=== PATIENT | female | born 1960 | race Asian ===

== ENCOUNTER → 2021-10-07 07:05 | Outpatient (CLI) | payer OTHER, SELFPAY ==
[2021-10-07 12:21] LABS: COVID19 -Nasal RAPID Negative (Negative)
== END ==
PROVIDERS: PCP Family Medicine; Visit Provider Surgery
DX: Z01.812 Encounter for preprocedural laboratory examination (principal); Z20.822 Contact with and (suspected) exposure to COVID-19
CPT/HCPCS: 87635; C9803

== ENCOUNTER → 2021-10-08 06:56 | Outpatient (CLI) | payer OTHER, SELFPAY ==
--- NOTE | 2021-10-08 08:10 | DI.US.S_ITS ---
At the request of: LEANDER TONEY Procedure: US breast LT limited LIMITED ULTRASOUND OF LEFT BREAST: 10/08/2021 CLINICAL: Patient here for u/s guided wire loc. Mass no longer visible and Twirl clip not visible by u/s. Wire loc switched to mammo guided. Comparison is made to exams dated: 04/22/2021 ultrasound biopsy, 04/22/2021 mammogram - [facility] [place], 04/01/2021 ultrasound, and 04/01/2021 mammogram - [facility]. Real-time ultrasound of the left breast 11 o'clock region was performed. Chavez scale images of the real- time examination were reviewed. The previously demonstrated 0.9 cm mass at the 11 o'clock position 2 cm from the nipple was not identified sonographically today. The marker clip placed previously was also not identified. IMPRESSION: POST PROCEDURE MAMMOGRAM FOR MARKER PLACEMENT The previously demonstrated 0.9 cm mass at the 11 o'clock position 2 cm from the nipple was not identified sonographically today. The marker clip placed previously was also not identified. The patient was scheduled for mammographic wire localization to be performed immediately. This exam was interpreted at Station ID: [id number]. Electronically Signed By: Dr. Mic tim,slc/:10/08/2021 11:36:22 copy to: SULEIMAN ANG Continued Report - Page 2 of 2 Patient Name: SHO CURRAN date: 1960 Sex: F Attending Physician: Teresita Indications: Date: 10/08/2021 09:26 At the request of: LEANDER TONEY Procedure: US breast LT limited Ultrasound BI-RADS: Post-procedure biopsy marker clip
--- NOTE | 2021-10-08 08:22 | DI.US.S_ITS ---
At the request of: LEANDER TONEY Procedure: US breast needle loc RT WIRE LOCALIZATION RIGHT BREAST WITH POST MAMMOGRAPHIC AND ULTRASOUND IMAGIN10/08/2021 CLINICAL: Pre-op wire localization with ultrasound guidance. Correlation is made to exams dated: 04/22/2021 ultrasound biopsy and 04/22/2021 mammogram - [facility]. A wire localization was performed for the 0.8 cm x 0.7 cm x 0.4 cm mass located in the right breast at 1 o'clock middle depth 5 cm from the nipple. This was described on the previous mammography and ultrasound reports. The skin was prepped in the usual manner. Local anesthetic was administered to the access site. The localization was approached from the lateral aspect. A wire was inserted into the targeted area. A sterile dressing was applied to the access site. Post placement mammographic and ultrasound imaging was obtained. IMPRESSION: WIRE LOCALIZATION Wire localization for the 0.8 cm x 0.7 cm x 0.4 cm mass in the right breast at 1 o'clock middle depth 5 cm from the nipple was successful. This exam was interpreted at Station ID: [id number]. Dr. Mic tim,slc/:10/08/2021 11:21:57 copy to: SULEIMAN ANG
== END ==
PROVIDERS: PCP Family Medicine; Referring Provider Surgery; Visit Provider Surgery
DX: D24.1 Benign neoplasm of right breast (principal); D24.2 Benign neoplasm of left breast
CPT/HCPCS: 19285; 76642; C1819

== ENCOUNTER 2021-10-08 07:17 | Day surgery (SDC) | payer OTHER, SELFPAY ==
[2021-10-06 08:42] VITALS: BMI 28.3
[2021-10-08] VITALS (8 sets, daily range): BP systolic 98–184; BP diastolic 63–91; PULSE 60–70; RESP 14–18; TEMP 36.3–36.8; O2SAT 18–96; BMI 28.3
--- NOTE | 2021-10-08 | DI.MG.S_ITS ---
UNILATERAL RIGHT DIGITAL DIAGNOSTIC MAMMOGRAM 3D/2D POST-NEEDLE BIOPSY: 10/08/2021 CLINICAL: Right breast post wire. Comparison is made to exams dated: 10/08/2021 [facility], 04/22/2021 ultrasound biopsy - [facility], and 04/01/2021 ultrasound - [facility]. There are scattered fibroglandular elements in right breast. No significant masses, calcifications, or other findings are seen in the breast. There has been no significant interval change. IMPRESSION: NEGATIVE There is no mammographic evidence of malignancy. A 1 year screening mammogram is recommended. Based on the Tyrer Cuzick model (a risk assessment model) the patient's lifetime risk is 10.2% and her 10 year risk is 4.0%. According to the ACR, ACS, and NCCN guidelines, an annual breast MRI exam along with mammogram is recommended if the patient's lifetime risk is 20% or greater. This exam was interpreted at Station ID: [id number]. NOTE: For mammograms, a report in lay terms will be sent to the patient. Approximately 15% of breast malignancies will not be visualized mammographically. In the management of a palpable breast mass, a negative mammogram must not discourage biopsy of a clinically suspicious lesion. Electronically Signed By: Bao levin/aleida:10/08/2021 10:01:20 copy to: SULEIMAN ANG letter sent: Normal Exam ACR BI-RADS Category 1: Negative [id number]
--- NOTE | 2021-10-08 | PATH_ITS ---
[facility] Accession Number: [id number] . 01 Material submitted: . PART A: breast - RIGHT BREAST TISSUE MASS PART B: breast - LEFT BREAST TISSUE MASSES . 01 Clinical history: . BILATERAL BREAST LUMPECTOMY A: SHORT STITCH SUPERIOR, LONG STITCH LATERAL B: SHORT STITCH SUPERIOR, LONG STITCH LATERAL . 01 Diagnosis: A. Right Breast Tissue Mass, Needle Localization Biopsy: Sclerosed intraductal papilloma involved by usual ductal hyperplasia. Negative for atypia or malignancy. Background fibroadenomatous and fibrocystic change and papillomatosis. Please see comment. . B. Left Breast Tissue Masses, Needle Localization Biopsy: Portions of breast tissue x 3 with patchy regions of sclerosed intra- ductal papilloma involved by usual ductal hyperplasia. Changes consistent with previous instrumentation (smallest fragment). Background fibrocystic change and papillomatosis (largest fragment). Pleomorphic calcification present (largeset fragment). Negative for atypia or malignancy. Please see comment. [facility] 10/16/2021 1252 Local . 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 . As part of routine quality cloth tester, this case was also reviewed by Drs. Akers and Gisselle, who agree with the interpretation. . Voice message left for Dr. Lo's care team on 10-14-21 at approximately 5:00 p.m. . 01 Electronically signed: . Mildred Valdez MD, Pathologist NPI- [id number] . 01 Gross description: . Received in two parts. . A. Received in formalin in a specimen container, labeled with the patient's name and medical record number, right breast mass, right breast mass tissue, short stitch superior, long stitch lateral, is previously oriented with a short stitch for superior resection margin, and long stitch for lateral resection margin, wood-yellow, fibroadipose tissue fragment that measures 6.3 cm from superior to inferior, 2.5 cm from medial to lateral, 0.8 cm from anterior to posterior. There is a wire within the specimen that enters through the superior aspect of the specimen. The anterior resection margin is inked in blue. The posterior resection margin is inked in black. Superior (area with suture) is inked in green. The short suture is inked in green. The inferior resection margin is inked in red. The lateral resection margin - margin with long suture is inked orange. The medial resection margin is inked yellow. The specimen is serially sectioned to reveal focally fibrotic cut surfaces. There is an irregularly shaped whiter solid area with metallic clip identified that measures 0.5 x 0.4 x 0.4 cm. The area grossly focally abuts the deep resection margin (posterior resection margin) and it is 0.2 cm away from the anterior resection margin. The area is 0.3 cm away from lateral resection margin and it is 1 cm away from the superior section margin, and 1.7 cm away from the inferior resection margin. The mass is 0.4 cm away from the medial resection margin. Submitted as follows: . A1: Superior resection margin en face. A2: Inferior resection margin en face. A3: Lateral resection margin (margin with long suture) en face shave. A4-A10: Specimen body entirely sequentially submitted (in cassette A7 fibrotic area with metallic clip). . The submitted is submitted on 10/09/2021 at 1:03 p.m. . B. Received in formalin in a specimen container, labeled with the patient's name and medical record number, left breast tissue, short stitch superior, long stitch lateral, are three previously oriented lumpectomies. . Lumpectomy #1 is oriented with a short suture in superior resection margin and long or lateral resection margin. The specimen, the small lumpectomy, measures 3.7 cm from superior to inferior, 2.5 cm from medial to lateral, and 1.1 cm from anterior to deep resection margin. The small lumpectomy is inked yellow on anterior resection margin, black on deep resection margin, blue on medial resection margin. The inferior resection margin is inked red, lateral resection margin is inked green, and superior resection margin is inked orange. . The specimen is serially sectioned to reveal grossly unremarkable fibroadipose cut surfaces. There is a metallic clip identified within one of the cut surfaces. The metallic clip grossly abuts the superficial (yellow) resection margin. The clip is 0.8 cm away from deep resection margin, it is 1.0 cm away from lateral resection margin, 0.5 cm away from medial resection margin, 1.4 cm away from inferior resection margin, and 1.3 cm away from superior resection margin. . The middle-sized lumpectomy is oriented with the short suture on superior resection margin and long lateral resection margin, and measures 3.8 cm from superior to inferior, 3.5 cm from medial to lateral, and 1.1 cm from anterior to posterior (deep resection margin). The specimen has an irregular shape and slightly cauterized surface. The anterior (superficial) resection margin is inked yellow, deep resection margin is inked in black, medial resection inked in blue, inferior resection inked in red, lateral resection margin is inked in green, and superior resection margin is inked orange. . The specimen is serially sectioned to reveal diffusely fibrotic, wood-white and yellow cut surfaces. No distinct lesions are grossly identified. . Lumpectomy #3 is oriented with short suture in superior resection margin and long suture in lateral resection margin, and there is a metallic wire within the specimen anterior aspect. The largest lumpectomy measures 4.7 cm from anterior to posterior, 3.5 cm from superior to inferior, and 0.8 cm from medial to lateral. The specimen has an irregular shape and multilobulated surface. . The specimen is serially sectioned to reveal slightly diffusely fibrotic wood-white and yellow fibroadipose cut surfaces. No distinct lesions are grossly identified. . All three lumpectomies (entire specimen) entirely sequentially submitted as follows: . B1-B4: The smallest lumpectomy (lumpectomy #1) entirely sequentially submitted from superior to inferior (the slice with metallic clip is in cassette B2. B5-B13: Middle-sized lumpectomy entirely sequentially submitted from superior to inferior. B14-B23: The largest third lumpectomy entirely sequentially submitted from superior to inferior. . Part B processed on 10/09/2021 at 2:51 p.m. ([id number]) /MRV 10/09/2021 1609 Local . 01 Microscopic: . An immunohistochemistry panel is performed to further evaluate the cells of interest. The control stains show appropriate reactivity. . RESULTS: Block A7 P63: Positive in regions of interest. SMMS-1: Positive in regions of interest. . The presence of p63 and myosin in the regions of interest mitigates against an interpretation of invasive carcinoma at this focus. . Block A10 P63: Positive in regions of interest. . The presence of p63 in the regions of interest mitigates against an interpretation of invasive carcinoma at this focus. . ER: Patchy positive. CK5/6: Patchy positive. . Blocks B3 and B11 ER: Patchy positive. CK5/6: Patchy positive. . The mosaic pattern of CK5/6 and patchy ER positivity mitigates against an interpretation of atypia within the papillary lesion. . Block B19 E-cadherin: Positive in region of interest. . The presence of e-cadherin positivity mitigates against an interpretation of atypical lobular hyperplasia/lobular carcinoma in situ. . * This test was developed and its performance characteristics determined by [employer]. It has not been cleared or approved by the U.S. Food and Drug Administration. The FDA has determined that such clearance or approval is not necessary. This test is used for clinical purposes. It should not be regarded as investigational or for research. . 01 Pathologist provided ICD-10: D24.1 . 01 CPT . 567321, 282649, V79267, S33437 Specimen Comment: A courtesy copy of this report has been sent to [phone] Performed at: 01 [facility] [address] [place] [address], [place], [place] [id number] MD Harsh Crenshaw MD Phone: [phone]
--- NOTE | 2021-10-08 08:01 | SUR.PREOP ---
pt to DI in wheelchair
--- NOTE | 2021-10-08 09:19 | DI.MG.S_ITS ---
At the request of: LEANDER TONEY Procedure: MM needle loc LT 2D DIGITAL MAMMOGRAPHY GUIDED WIRE LOCALIZATION LEFT BREAST WITH POST MAMMOGRAPHIC IMAGING- POST-EXCISIONAL BIOPSY: 10/08/2021 CLINICAL: Left breast Wire loc bilateral Neoplasm. Correlation is made to exams dated: 04/22/2021 ultrasound biopsy, 04/22/2021 ultrasound biopsy, 04/22/2021 mammogram - [facility] [place], and 04/01/2021 ultrasound - [facility]. A wire localization using digital mammography guidance was performed for the 0.9 cm x 0.8 cm x 0.5 cm mass located in the left breast at 11 o'clock anterior depth 2 cm from the nipple. This was described on the previous mammography and ultrasound reports. The skin was prepped in the usual manner. Local anesthetic was administered to the access site. The localization was approached from the craniocaudal aspect. A wire was inserted adjacent to the marker under digital mammography guidance. A sterile dressing was applied to the access site. Post placement mammographic imaging demonstrates the tip of the wire 1.1cm posterior from the marker. IMPRESSION: WIRE LOCALIZATION Wire localization for the 0.9 cm x 0.8 cm x 0.5 cm mass in the left breast at 11 o'clock anterior depth 2 cm from the nipple was successful. The tip of the wire is 1.1cm posterior from the marker clip. This exam was interpreted at Station ID: [id number]. Continued Report - Page 2 of 2 Patient Name: SHO CURRAN date: 1960 Sex: F Attending Physician: Teresita Indications: Date: 10/08/2021 08:50 At the request of: LEANDER TONEY Procedure: MM needle loc LT 2D Dr. Mic tim,slc/:10/08/2021 11:38:04 copy to: SULEIMAN ANG
--- NOTE | 2021-10-08 10:33 | PM.HP.1 ---
History of Present Illness History of Present Illness Date Patient Seen: 10/08/21 Chief complaint: BILATERAL BREAST LUMPECTOMY Narrative: Tammy Chavez is a 61 year old woman with new diagnosis of bilateral breast sclerosing papiloma here for elective bilateral wire guided lumpectomy. Patient History Medical History Depression Hypertension Surgical History History of hysterectomy Family & Social History Family History Mother Hypertension Stroke Gallstones Brother Hypertension Family/Other Breast cancer Social History: household members spouse lives independently Yes Tobacco & Substance use: Smoking Status Never smoker alcohol intake current alcohol intake frequency holiday/special occasion Substance Use Type does not use Meds Home Medications and Allergies Home Medications Medication Instructions Recorded Confirmed Type losartan 25 mg tablet 25 mg PO DAILY 08/21/21 10/08/21 History metoprolol succinate 50 mg 50 mg PO BID 08/21/21 10/08/21 History tablet,extended release 24 hr sertraline 100 mg tablet 100 mg PO DAILY 08/21/21 10/08/21 History Allergies Allergy/AdvReac Type Severity Reaction Status Date / Time No Known Drug Allergies Allergy Verified 10/08/21 07:58 Exam Vital Signs (past 8 hours): - 10/08/21 07:48 Temperature 97.6 F Pulse Rate 66 Respiratory Rate 18 Blood Pressure 184/91 H Pulse Oximetry 96 Oxygen Delivery Method Room Air Oxygen Delivery Method Room Air Narrative Exam Narrative: General adult woman alert oriented no acute distress Chest nonlabored respiration Assessment & Plan Assessment and plan (1) Papilloma of both breasts: Status: Acute Assessment & Plan narrative: 61-year-old woman with papillomas of both breasts here for bilateral wire guided lumpectomy. Overview of procedure was discussed with the patient. Operative risks including bleeding, infection, need for further surgery, were discussed. Questions answered and she is in agreement with this plan. Time Spent With Patient Critical Care time: I spent a total of [] minutes of critical care time on this patient's care today; this time is exclusive of procedural time.
[2021-10-08] MEDS: LACTATED RINGERS 1,000 ML 100 ML IV (11:35)
[2021-10-08] MEDS: CEFAZOLIN 2 GM/20 ML SYRINGE IV (11:40)
--- NOTE | 2021-10-08 11:59 | SUR.OPER ---
Supine on padded OR bed, head on pillow, arms secured on padded arm boards at <90 degrees abduction, legs uncrossed, safety belt at thigh, tape over blanket over lower legs.
--- NOTE | 2021-10-08 12:11 | DI.MG.S_ITS ---
At the request of: LEANDER TONEY Procedure: MM surgical specimen RT SPECIMEN RIGHT BREAST: 10/08/2021 CLINICAL: Right breast Speciman. Correlation is made to exams dated: 04/22/2021 ultrasound biopsy, 04/22/2021 mammogram - [facility], and 04/01/2021 ultrasound - [facility]. A surgical specimen was imaged for the previous biopsy site located in the right breast at 1 o'clock posterior depth 5 cm from the nipple. IMPRESSION: SPECIMEN The imaged specimen includes a biopsy clip and the distal portion of the localization wire. This exam was interpreted at Station ID: [id number]. Dr. Mic tim,[facility]/:10/08/2021 13:30:30 copy to: SULEIMAN ANG
--- NOTE | 2021-10-08 12:23 | DI.MG.S_ITS ---
At the request of: LEANDER TONEY Procedure: MM surgical specimen LT SPECIMEN LEFT BREAST: 10/08/2021 CLINICAL: Left breast specimen. Correlation is made to exams dated: 04/22/2021 ultrasound biopsy, 04/22/2021 ultrasound biopsy, and 04/22/2021 mammogram - [facility]. A surgical specimen was imaged for the previous biopsy site located in the left breast at 11 o'clock anterior depth 2 cm from the nipple. IMPRESSION: SPECIMEN The imaged specimen includes a biopsy clip and the distal portion of the localization wire. This exam was interpreted at Station ID: [id number]. Dr. Mic tim,[facility]/:10/08/2021 13:30:58 copy to: SULEIMAN ANG
[2021-10-08] MEDS: BUPIVACAINE 0.5% (PF) VIAL 50 ML INJ (12:34)
[2021-10-08] MEDS: EPINEPHrine 1 MG/ML 0.15 MG INJ (12:37)
--- NOTE | 2021-10-08 13:04 | PM.OP.1 ---
Operative Date/Time/Diagnoses Date of procedure: 10/08/21 Time of procedure: 13:04 Pre-op diagnosis: Bilateral breast papillomas Post-op diagnosis: same Procedure & Clinicians Procedure: Bilateral needle guided lumpectomy Same procedure as scheduled: Yes Indications: Biopsy-proven bilateral breast papilloma without evidence of malignancy Surgeon: Ezequiel Lo Anesthesia Type: General Operative Notes Findings: Wire and clip within the right breast specimen. Clip within 1 of the left breast specimens Prosthetic devices, grafts, tissues, transplants, or devices: Right breast mass. Short stitch superior long stitch lateral Left breast mass x3 short stitch superior long stitch lateral Estimated Blood Loss (mL): 10 Procedure in detail: The patient underwent needle localized prior to the operation. They were brought to the operating room and placed supine on the table. Bilateral lower extremity compression devices were applied. They were intubated with an LMA. They were prepped and draped in sterile fashion. Time-out was performed. A curvilinear incision on the superior aspect of the right breast areola was made and subcutaneous tissues were divided. The localizing wire was identified and then brought back within the incision. The end of the wire was within a slightly thickened breast mass approximately 1cm. The mass was excised with the wire and the clip. Specimen was marked short stitch superior long stitch lateral. Imaging demonstrated that the specimen contained the wire and the associated clip. Subcutaneous tissues were reapproximated with 3 0 Vicryl sutures skin closed with Monocryl followed by application of Dermabond. A linear incision was made on the superior aspect of the left breast. The counts were correct. They emerged from anesthesia and were transfered to recovery in stable condition. The localizing wire was identified and then brought back within the incision. There was no clear breast mass associated with the wire. Imaging demonstrated the wire without the clip within the first specimen. With further exploration of the left breast tissue the clip was identified within a anterior slightly thickened breast mass of approximately 2 c. A total of three left breast masses were excised each labeled short stitch superior long stitch lateral. Subcutaneous tissues were reapproximated with 3 0 Vicryl sutures skin closed with Monocryl followed by application of Dermabond. Complications: none Post-operative Condition: stable Disposition: same day surgery
--- NOTE | 2021-10-08 13:30 | SUR.PHASEII ---
Dr. Lo in to talk to pt and she states she understands.
== END 2021-10-08 13:52 | disposition home or self-care (01) ==
PROVIDERS: PCP Family Medicine; Referring Provider Surgery; Visit Provider Surgery
PROC: (CPT 19301; principal; 2021-10-08 11:00)
DX: D24.1 Benign neoplasm of right breast (principal); D24.2 Benign neoplasm of left breast; I10 Essential (primary) hypertension; F32.A Depression, unspecified
CPT/HCPCS: 19301; 19281; 19285; 76098; 76642; 77065; 82962; C1819; J0171; J0690; J2250; J3010

== ENCOUNTER → 2022-06-16 10:08 | Outpatient (CLI) | payer OTHER, SELFPAY ==
--- NOTE | 2022-06-16 10:27 | DI.DEXA.S_ITS ---
Indication: postmenopausal; screening for osteoporosis; Referring Provider: SHADY CAMARILLO Study: Bone densitometry was performed. Exam Date: June 16, 2022 Accession number: [id number] Bone Density: Region BMD T-score Z-score Classification AP Spine(L3, L4) 0.539 -5.1 -3.6 Osteoporosis Femoral Neck (Left) 0.500 -3.1 -1.9 Osteoporosis Total Hip (Left) 0.618 -2.7 -1.7 Osteoporosis Femoral Neck (Right) 0.426 -3.8 -2.5 Osteoporosis Total Hip (Right) 0.600 -2.8 -1.9 Osteoporosis Total Hip Mean 0.609 -2.8 -1.8 Osteoporosis World Health Organization criteria for BMD impression classify patients as: Normal (T-score at or above -1.0), Osteopenia (T-score between -1.0 and -2.5), or Osteoporosis (T-score at or below -2.5). 10-year Fracture Risk: FRAX not reported because: Some T-score for Spine Total or Hip Total or Femoral Neck at or below -2.5 Impression: The patient has osteoporosis, based on the Total Spine T-score. Discussion: HIGH RISK OF FRACTURE. BONE DENSITY IS UNDESIRABLY LOW AT ONE OR MORE SKELETAL SITES, CONSISTENT WITH OSTEOPOROSIS. ALSO, BONE DENSITY IS LOWER THAN EXPECTED FOR AGE AND SEX AT ONE OR MORE SKELETAL SITES; RECOMMEND A DILIGENT SEARCH FOR SECONDARY CAUSES OF BONE LOSS. This patient's lowest T-score meets the World Health Organization's (WHO) criteria for osteoporosis at one or more sites (T-score -2.5 or below). In untreated patients, the risk of osteoporotic fracture increases approximately two-fold for each 1.0 SD decrease in T-score. Low bone density is not the only risk factor for fracture; also consider factors such as patient's age, frailty or poor health, risk of falling, risk of injury, previous osteoporotic fracture, family history of osteoporosis, cigarette smoking, low body weight, etc. Not everyone with low bone mineral density has osteoporosis; osteomalacia and other metabolic bone disorders should also be considered. Patients who have osteoporosis should be evaluated for specific diseases and conditions (secondary causes) that may cause or contribute to bone loss. The [place] Association [employer] Clinical Endocrinologists (AACE) and National Osteoporosis Foundation (NOF) recommend pharmacologic intervention for all postmenopausal women whose T-score is in this range. Also, this patient's bone mineral density is below the range considered normal for healthy age-, sex-, and race-matched controls at least one site (Z-score -2.0 or below). This warrants careful evaluation for diseases and conditions that may contribute to accelerated bone loss. The patient should follow a healthful lifestyle (good nutrition with adequate calcium and vitamin D, and appropriate weight-bearing exercise). Follow-Up: Consider a repeat BMD and Vertebral Fracture Assessment (VFA) exam in 2 years or sooner if medically necessary, to reassess this patient's status. Reported by: AMARI FREGOSO MD on 06/16/2022 10:39:00 AM.
== END ==
PROVIDERS: PCP Family Medicine; Referring Provider Family Medicine; Visit Provider Family Medicine
DX: S22.31XS Fracture of one rib, right side, sequela (principal); Z13.820 Encounter for screening for osteoporosis; Z78.0 Asymptomatic menopausal state; M81.0 Age-related osteoporosis without current pathological fracture; Z90.710 Acquired absence of both cervix and uterus
CPT/HCPCS: 77080

== ENCOUNTER → 2023-01-21 12:53 | Outpatient (CLI) | payer OTHER, SELFPAY ==
--- NOTE | 2023-01-21 12:59 | DI.RAD.S_ITS ---
PROCEDURE: XR LUMBAR SPINE 2-3V INDICATIONS: BACK PAIN TECHNIQUE: 3 views of the lumbar spine were acquired. COMPARISON: None. FINDINGS: Bones: 5 [id number] vertebrae are present. There is normal bony alignment. No vertebral body compression fractures. No suspicious bony lesions. Multilevel disc space narrowing and endplate osteophyte formation, as well as facet hypertrophy. Soft tissues: Overlying bowel gas pattern is normal. No suspicious soft tissue calcifications. IMPRESSION: Multilevel degenerative disc and facet disease. No acute fracture. No osseous lesion. If symptoms and/or clinical suspicion for pathology persist, further assessment with repeat, or advanced imaging (e.g., CT, MRI, or bone scan) may be helpful for further assessment. Dictated by: Arsen Houston M.D. on 01/21/2023 at 15:23 Approved by: Arsen Houston M.D. on 01/21/2023 at 15:23
== END ==
PROVIDERS: PCP Family Medicine; Referring Provider Family Medicine; Visit Provider Family Medicine
DX: M51.16 Intervertebral disc disorders with radiculopathy, lumbar region (principal); M47.26 Other spondylosis with radiculopathy, lumbar region
CPT/HCPCS: 72100

== ENCOUNTER 2023-02-09 05:23 | Emergency (ER) | payer OTHER, SELFPAY ==
[2023-02-09] VITALS (22 sets, daily range): BP systolic 141–239; BP diastolic 72–118; PULSE 59–84; RESP 16–22; TEMP 35.7; O2SAT 20–100; BMI 26.0
--- NOTE | 2023-02-09 05:25 | ED_ITS ---
HPI - General Adult <Shanell Frank MD - Last Filed: 02/10/23 04:22> General Chief complaint: Urogenital-Female Stated complaint: kidney stone and meds isn't working Time Seen by Provider: 02/09/23 05:25 History of Present Illness HPI narrative: 62-year-old woman with a history of hypertension depression who on January 27 presented to would be emergency department complaining of flank pain a CT scan showed a 2 x 1 cm stone in the right ureteropelvic junction with right-sided hydronephrosis and a concurrent solid mass in the left kidney measuring 5 x 4 cm strongly concerning for renal cell cancer. She was given pain medications and informed of the findings has followed up with her primary care doctor and referrals for consultation for the large kidney stone has been obtained it is reportedly at [facility] with Urology on February 15. The patient states that her primary doctor is also working on a 2nd referral for consultation regarding the mass on the right kidney. In the meantime her pain has increased in her primary care doctor his appropriately increased pain medications. At this point she is taking up to 60 mg of oxycodone daily in the form of 10 mg Percocets typically to every 8 hours. She is noticed that she is having more difficulty with constipation. She has used some Senokot in 2 days ago had a very hard stool. She presents today complaining of no stool for 48 hours, increasing lower abdominal pain and a sense that she has a fullness and pressure in her rectum. No fevers or chills. Related Data Home Medications Medication Instructions Recorded Confirmed losartan 25 mg tablet 25 mg PO DAILY 08/21/21 10/16/21 metoprolol succinate 50 mg 50 mg PO BID 08/21/21 10/16/21 tablet,extended release 24 hr sertraline 100 mg tablet 100 mg PO DAILY 08/21/21 10/16/21 Previous Rx's Medication Instructions Recorded acetaminophen 325 mg capsule 650 mg (2 x 325 mg) PO QID PRN 10/08/21 (Tylenol) pain #60 caps ibuprofen 200 mg tablet 400 mg (2 x 200 mg) PO Q6H #60 tabs 10/08/21 oxycodone 5 mg tablet 5 mg PO Q6H PRN pain #20 tabs 10/08/21 ketorolac 10 mg tablet 10 mg PO Q6H PRN pain 5 days #20 11/21/23 tabs oxycodone 5 mg tablet 5 mg PO Q6H PRN pain #10 tabs 02/09/23 Allergies Allergy/AdvReac Type Severity Reaction Status Date / Time No Known Drug Allergies Allergy Verified 02/09/23 05:34 Review of Systems <Shanell Frank MD - Last Filed: 02/10/23 04:22> Review of Systems Narrative: Pertinent positive and negative findings as per HPI Patient History <Shanell Frank MD - Last Filed: 02/10/23 04:22> Medical History Renal mass Kidney stone Depression Hypertension Surgical History History of hysterectomy Family History Mother Hypertension Stroke Gallstones Brother Hypertension Family/Other Breast cancer Social History marital status: household members: spouse lives independently: Yes occupational status: employed Smoking Status: Never smoker alcohol intake: current Smoking Status: Never smoker alcohol intake frequency: holidays/special occasions only Substance Use Type: does not use Exam <Shanell Frank MD - Last Filed: 02/10/23 04:22> Initial Vital Signs Initial Vital Signs: Vital Signs Temperature 96.2 F L 02/09/23 05:32 Pulse Rate 77 02/09/23 05:32 Respiratory Rate 20 02/09/23 05:32 Blood Pressure 239/118 H 02/09/23 05:32 Pulse Oximetry 20 L 02/09/23 05:32 Oxygen Delivery Method Room Air 02/09/23 05:32 General: Healthy appearing, in moderate pain with lower abdominal tenderness. Able to give a complete and coherent history. Well-nourished well-developed HEENT: Moist mucous membranes, normal sclera with reactive pupils, Respiratory: Lungs are clear to auscultation, no wheezing no rales no rhonchi. Full and symmetrical air movement Cardiac: Regular rate and rhythm no murmurs no bruits Abdomen: Soft, tender in the lower quadrants bilaterally without rebound or guarding. Bilateral flank pain right greater than left Rectal exam: No stool in the vault Skin: Warm and dry, no rashes Neurologic: Grossly neurologically intact with no obvious asymmetries or abnormalities Extremities: No trauma, well perfused Psych: Cooperative, appropriate insight and affect <Clara Rich DO - Last Filed: 02/10/23 09:01> Initial Vital Signs Initial Vital Signs: Vital Signs Temperature 96.2 F L 02/09/23 05:32 Pulse Rate 77 02/09/23 05:32 Respiratory Rate 20 02/09/23 05:32 Blood Pressure 239/118 H 02/09/23 05:32 Pulse Oximetry 20 L 02/09/23 05:32 Oxygen Delivery Method Room Air 02/09/23 05:32 Course <Shanell Frank MD - Last Filed: 02/10/23 04:22> Orders Ordered: Discontinued Medications Hydromorphone HCl (Hydromorphone 1 Mg Inj) 1 mg IV NOW ONE Stop: 02/09/23 05:56 Last Admin: 02/09/23 07:09 Dose: Not Given Documented By: MERLIN Hydromorphone HCl (Hydromorphone 0.5 Mg Inj) 0.5 mg IV Q15MIN PRN PRN Reason: Pain, Last Admin: 02/09/23 13:46 Dose: 0.5 mg Documented By: Admin: 02/09/23 07:36 Dose: 0.5 mg Documented By: Admin: 02/09/23 06:39 Dose: 0.5 mg Documented By: Admin: 02/09/23 06:10 Dose: 0.5 mg Documented By: MERLIN Sodium Chloride (Normal Saline 0.9%) 1,000 mls @ 1,000 mls/hr IV BOLUS ONE Stop: 02/09/23 06:54 Last Infusion: 02/09/23 07:08 Dose: Infused Documented By: Admin: 02/09/23 06:10 Dose: 1,000 mls/hr Documented By: SB Lidocaine HCl 5 ml/ Sodium (Chloride) 55 mls @ 330 mls/hr IV NOW ONE Stop: 02/09/23 08:09 Last Infusion: 02/09/23 08:38 Dose: Infused Documented By: Admin: 02/09/23 08:13 Dose: 330 mls/hr Documented By: MPO Ketorolac Tromethamine (Ketorolac 30 Mg/Ml Vial) 15 mg IV NOW ONE Stop: 02/09/23 08:36 Last Admin: 02/09/23 08:41 Dose: 15 mg Documented By: HUE Metoprolol Succinate (Metoprolol Er 50 Mg Tablet) 50 mg PO NOW ONE Stop: 02/09/23 06:00 Last Admin: 02/09/23 06:17 Dose: 50 mg Documented By: MERLIN Ondansetron HCl (Ondansetron 4 Mg/2 Ml Inj) 4 mg IV NOW ONE Stop: 02/09/23 05:56 Last Admin: 02/09/23 06:10 Dose: 4 mg Documented By: MERLIN Vital Signs Vital signs: Vital Signs - 8 hr 02/09/23 06:17 02/09/23 06:17 02/09/23 06:18 Pulse Rate 84 61 61 Respiratory Rate Blood Pressure 184/87 H Pulse Oximetry 95 94 Oxygen Delivery Method 02/09/23 06:18 02/09/23 06:30 02/09/23 06:30 Pulse Rate 63 Respiratory Rate Blood Pressure 184/87 H 199/91 H Pulse Oximetry 96 Oxygen Delivery Method 02/09/23 07:10 02/09/23 07:11 02/09/23 07:11 Pulse Rate 78 76 Respiratory Rate 16 Blood Pressure 214/100 H Pulse Oximetry 98 94 Oxygen Delivery Method Room Air 02/09/23 07:15 02/09/23 07:15 02/09/23 07:19 Pulse Rate 73 71 Respiratory Rate Blood Pressure 196/93 H 196/93 H Pulse Oximetry 95 Oxygen Delivery Method 02/09/23 07:30 02/09/23 07:30 02/09/23 08:00 Pulse Rate 70 70 Respiratory Rate Blood Pressure 209/95 H Pulse Oximetry 95 94 Oxygen Delivery Method 02/09/23 08:01 02/09/23 08:01 02/09/23 08:24 Pulse Rate 70 Respiratory Rate Blood Pressure 239/108 H 221/98 H Pulse Oximetry 94 Oxygen Delivery Method 02/09/23 08:24 02/09/23 08:30 02/09/23 08:30 Pulse Rate 69 67 Respiratory Rate Blood Pressure 205/72 H Pulse Oximetry 93 93 Oxygen Delivery Method 02/09/23 09:00 02/09/23 09:01 02/09/23 09:01 Pulse Rate 67 68 Respiratory Rate Blood Pressure 231/101 H Pulse Oximetry 94 94 Oxygen Delivery Method 02/09/23 09:33 02/09/23 09:33 02/09/23 09:38 Pulse Rate 64 59 L Respiratory Rate 20 Blood Pressure 141/74 H 141/74 H Pulse Oximetry 96 96 Oxygen Delivery Method Room Air 02/09/23 10:52 02/09/23 11:53 02/09/23 12:59 Pulse Rate 60 63 59 L Respiratory Rate 22 22 20 Blood Pressure 191/85 H 191/85 H 205/91 H Pulse Oximetry 97 100 97 Oxygen Delivery Method Room Air Room Air Room Air 02/09/23 13:05 02/09/23 13:59 Pulse Rate 59 L Respiratory Rate 20 Blood Pressure 213/97 H 194/86 H Pulse Oximetry 98 Oxygen Delivery Method Room Air <Clara Rich DO - Last Filed: 02/10/23 09:01> Orders Ordered: Discontinued Medications Hydromorphone HCl (Hydromorphone 1 Mg Inj) 1 mg IV NOW ONE Stop: 02/09/23 05:56 Last Admin: 02/09/23 07:09 Dose: Not Given Documented By: MERLIN Hydromorphone HCl (Hydromorphone 0.5 Mg Inj) 0.5 mg IV Q15MIN PRN PRN Reason: Pain, Last Admin: 02/09/23 13:46 Dose: 0.5 mg Documented By: Admin: 02/09/23 07:36 Dose: 0.5 mg Documented By: Admin: 02/09/23 06:39 Dose: 0.5 mg Documented By: Admin: 02/09/23 06:10 Dose: 0.5 mg Documented By: MERLIN Sodium Chloride (Normal Saline 0.9%) 1,000 mls @ 1,000 mls/hr IV BOLUS ONE Stop: 02/09/23 06:54 Last Infusion: 02/09/23 07:08 Dose: Infused Documented By: Admin: 02/09/23 06:10 Dose: 1,000 mls/hr Documented By: MERLIN Lidocaine HCl 5 ml/ Sodium (Chloride) 55 mls @ 330 mls/hr IV NOW ONE Stop: 02/09/23 08:09 Last Infusion: 02/09/23 08:38 Dose: Infused Documented By: Admin: 02/09/23 08:13 Dose: 330 mls/hr Documented By: KAMILLE Ketorolac Tromethamine (Ketorolac 30 Mg/Ml Vial) 15 mg IV NOW ONE Stop: 02/09/23 08:36 Last Admin: 02/09/23 08:41 Dose: 15 mg Documented By: HUE Metoprolol Succinate (Metoprolol Er 50 Mg Tablet) 50 mg PO NOW ONE Stop: 02/09/23 06:00 Last Admin: 02/09/23 06:17 Dose: 50 mg Documented By: MERLIN Ondansetron HCl (Ondansetron 4 Mg/2 Ml Inj) 4 mg IV NOW ONE Stop: 02/09/23 05:56 Last Admin: 02/09/23 06:10 Dose: 4 mg Documented By: MERLIN Vital Signs Vital signs: Vital Signs - 8 hr 02/09/23 06:17 02/09/23 06:17 02/09/23 06:18 Pulse Rate 84 61 61 Respiratory Rate Blood Pressure 184/87 H Pulse Oximetry 95 94 Oxygen Delivery Method 02/09/23 06:18 02/09/23 06:30 02/09/23 06:30 Pulse Rate 63 Respiratory Rate Blood Pressure 184/87 H 199/91 H Pulse Oximetry 96 Oxygen Delivery Method 02/09/23 07:10 02/09/23 07:11 02/09/23 07:11 Pulse Rate 78 76 Respiratory Rate 16 Blood Pressure 214/100 H Pulse Oximetry 98 94 Oxygen Delivery Method Room Air 02/09/23 07:15 02/09/23 07:15 02/09/23 07:19 Pulse Rate 73 71 Respiratory Rate Blood Pressure 196/93 H 196/93 H Pulse Oximetry 95 Oxygen Delivery Method 02/09/23 07:30 02/09/23 07:30 02/09/23 08:00 Pulse Rate 70 70 Respiratory Rate Blood Pressure 209/95 H Pulse Oximetry 95 94 Oxygen Delivery Method 02/09/23 08:01 02/09/23 08:01 02/09/23 08:24 Pulse Rate 70 Respiratory Rate Blood Pressure 239/108 H 221/98 H Pulse Oximetry 94 Oxygen Delivery Method 02/09/23 08:24 02/09/23 08:30 02/09/23 08:30 Pulse Rate 69 67 Respiratory Rate Blood Pressure 205/72 H Pulse Oximetry 93 93 Oxygen Delivery Method 02/09/23 09:00 02/09/23 09:01 02/09/23 09:01 Pulse Rate 67 68 Respiratory Rate Blood Pressure 231/101 H Pulse Oximetry 94 94 Oxygen Delivery Method 02/09/23 09:33 02/09/23 09:33 02/09/23 09:38 Pulse Rate 64 59 L Respiratory Rate 20 Blood Pressure 141/74 H 141/74 H Pulse Oximetry 96 96 Oxygen Delivery Method Room Air 02/09/23 10:52 02/09/23 11:53 02/09/23 12:59 Pulse Rate 60 63 59 L Respiratory Rate 22 22 20 Blood Pressure 191/85 H 191/85 H 205/91 H Pulse Oximetry 97 100 97 Oxygen Delivery Method Room Air Room Air Room Air 02/09/23 13:05 02/09/23 13:59 Pulse Rate 59 L Respiratory Rate 20 Blood Pressure 213/97 H 194/86 H Pulse Oximetry 98 Oxygen Delivery Method Room Air Medical Decision Making <Shanell Frank MD - Last Filed: 02/10/23 04:22> Lab Data 02/09/23 06:00 02/09/23 06:00 Labs: Lab Results 02/09/23 02/09/23 Range/Units 06:00 07:02 WBC 10.1 (4.5-11.0) X10^3/uL RBC 4.60 (4.0-5.2) X10^6/uL Hgb 13.0 (12.0-16.0) g/dL Hct 39.4 (36-46) % MCV 85.8 (80-100) fL MCH 28.2 (26-34) PG MCHC 32.9 (30-36) % RDW 14.7 (11.6-14.8) % Plt Count 276 (150-400) X10^3/uL Neut % (Auto) 76.2 H (50-75) % Lymph % (Auto) 14.6 L (25-40) % [place] % (Auto) 6.7 (3-14) % Eos % (Auto) 1.8 L (2-4) % Baso % (Auto) 0.7 (0-2) % Neut # (Auto) 7700 H (1584-8052) /uL Lymph # (Auto) 1500 (0102-4613) /uL [place] # (Auto) 700 (0-900) /uL Eos # (Auto) 200 (0-450) /uL Baso # (Auto) 100 (0-100) /uL Sodium 139 (137-145) mmol/L Potassium 3.6 (3.4-5.1) mmol/L Chloride 104 (98-107) mmol/L Carbon Dioxide 28 (22-32) mmol/L BUN 17 (7-17) mg/dL Creatinine 0.87 (0.52-1.04) mg/dL Estimated GFR > 60 (>60) mL/min BUN/Creatinine Ratio 19.5 (6-22) Glucose 115 H (80-110) mg/dL Calcium 9.5 (8.4-10.2) mg/dL Total Bilirubin 0.8 (0.2-1.3) mg/dL AST 31 (14-36) IU/L ALT 28 (<35) IU/L Alkaline Phosphatase 53 (38-126) U/L Total Protein 8.2 (6.3-8.2) g/dL Albumin 4.3 (3.5-5.0) g/dL Globulin 3.9 (1.7-4.1) g/dL Albumin/Globulin Ratio 1.1 (1.0-2.8) Urine Color Yellow Urine Appearance Clear Urine pH 8.0 (4.5-8.0) Ur Specific [place] 1.015 (1.000-1.035) Urine Protein Negative (Negative) Urine Glucose (UA) Negative (Negative) g/dL Urine Ketones Negative (NEGATIVE) Urine Occult Blood Trace-intact (Negative) Urine Nitrate Negative (Negative) Urine Bilirubin Negative (NEGATIVE) Urine Urobilinogen 0.2 (0.2) E.U./dL Ur Leukocyte Esterase Negative (NEGATIVE) Urine RBC 1-5/hpf (0-5/HPF) Urine WBC 1-5/hpf (0-5/HPF) Ur Squamous Epith Cells None seen (0-5/HPF) Urine Bacteria None seen (None) Ur Culture Indicated? Cult not indicated MDM Narrative Medical decision making narrative: CC: Large obstructing stone right ureteropelvic junction and large renal mass in the right kidney both diagnosed 01/27/2023 Complicating co-morbidities: Hypertension Data collected from: patient, Social determinants of health that may influence the patients condition: Some difficulty in accessing care in terms of both referrals and availability of appointments. Next appointment for initial consultation they believe for the kidney stone is currently February 15. They are continuing to work on an appointment for the consultation for the renal mass Medical records reviewed: CT scan and ER discharge notes reviewed from [facility] from January 27 Differential considered: Constipation secondary to large doses of narcotic, bowel obstruction, ureteral obstruction Exam documented above, pertinent findings include: Significant lower abdominal pain without rebound or guarding, mild flank pain right greater than left. She has no stool in the rectal vault, this is not obstipation causing her pain. Lab Test results independently reviewed as above. Pertinent findings: CBC is unremarkable Chemistries are reassuring with normal creatinine at 0.87 Imaging studies independently reviewed: Consultations: Treatments: Re-evaluations: Discussion: <Clara Rich, - Last Filed: 02/10/23 09:01> Lab Data Labs: Lab Results 02/09/23 02/09/23 Range/Units 06:00 07:02 WBC 10.1 (4.5-11.0) X10^3/uL RBC 4.60 (4.0-5.2) X10^6/uL Hgb 13.0 (12.0-16.0) g/dL Hct 39.4 (36-46) % MCV 85.8 (80-100) fL MCH 28.2 (26-34) PG MCHC 32.9 (30-36) % RDW 14.7 (11.6-14.8) % Plt Count 276 (150-400) X10^3/uL Neut % (Auto) 76.2 H (50-75) % Lymph % (Auto) 14.6 L (25-40) % [place] % (Auto) 6.7 (3-14) % Eos % (Auto) 1.8 L (2-4) % Baso % (Auto) 0.7 (0-2) % Neut # (Auto) 7700 H (5605-4168) /uL Lymph # (Auto) 1500 (5156-9284) /uL [place] # (Auto) 700 (0-900) /uL Eos # (Auto) 200 (0-450) /uL Baso # (Auto) 100 (0-100) /uL Sodium 139 (137-145) mmol/L Potassium 3.6 (3.4-5.1) mmol/L Chloride 104 (98-107) mmol/L Carbon Dioxide 28 (22-32) mmol/L BUN 17 (7-17) mg/dL Creatinine 0.87 (0.52-1.04) mg/dL Estimated GFR > 60 (>60) mL/min BUN/Creatinine Ratio 19.5 (6-22) Glucose 115 H (80-110) mg/dL Calcium 9.5 (8.4-10.2) mg/dL Total Bilirubin 0.8 (0.2-1.3) mg/dL AST 31 (14-36) IU/L ALT 28 (<35) IU/L Alkaline Phosphatase 53 (38-126) U/L Total Protein 8.2 (6.3-8.2) g/dL Albumin 4.3 (3.5-5.0) g/dL Globulin 3.9 (1.7-4.1) g/dL Albumin/Globulin Ratio 1.1 (1.0-2.8) Urine Color Yellow Urine Appearance Clear Urine pH 8.0 (4.5-8.0) Ur Specific [place] 1.015 (1.000-1.035) Urine Protein Negative (Negative) Urine Glucose (UA) Negative (Negative) g/dL Urine Ketones Negative (NEGATIVE) Urine Occult Blood Trace-intact (Negative) Urine Nitrate Negative (Negative) Urine Bilirubin Negative (NEGATIVE) Urine Urobilinogen 0.2 (0.2) E.U./dL Ur Leukocyte Esterase Negative (NEGATIVE) Urine RBC 1-5/hpf (0-5/HPF) Urine WBC 1-5/hpf (0-5/HPF) Ur Squamous Epith Cells None seen (0-5/HPF) Urine Bacteria None seen (None) Ur Culture Indicated? Cult not indicated MDM Narrative Medical decision making narrative: CC: Large obstructing stone right ureteropelvic junction and large renal mass in the right kidney both diagnosed 01/27/2023 Complicating co-morbidities: Hypertension Data collected from: patient, Social determinants of health that may influence the patients condition: Some difficulty in accessing care in terms of both referrals and availability of appointments. Next appointment for initial consultation they believe for the kidney stone is currently February 15. They are continuing to work on an appointment for the consultation for the renal mass Medical records reviewed: CT scan and ER discharge notes reviewed from [facility] from January 27 Differential considered: Constipation secondary to large doses of narcotic, bowel obstruction, ureteral obstruction Exam documented above, pertinent findings include: Significant lower abdominal pain without rebound or guarding, mild flank pain right greater than left. She has no stool in the rectal vault, this is not obstipation causing her pain. Lab Test results independently reviewed as above. Pertinent findings: CBC is unremarkable Chemistries are reassuring with normal creatinine at 0.87 Imaging studies independently reviewed: Consultations: Treatments: Re-evaluations: Discussion: Layla 02/09/23: Patient seen and independently evaluated by myself after being signed out by Dr. Frank. Patient has known right-sided kidney stone greater than a cm in size as well as a known left renal mass. She has been set up to see Urology at [facility] with an appointment on this upcoming Wednesday. Patient also notes she is been constipated, she has not been vomiting but has been nauseated. She is been taking Percocet 2-3 tablets every 4 hours without pain relief. Patient is on losartan metoprolol daily. Denies any other daily prescription medications. Was quite hypertensive gave her a.m. morning this medication today. Labs show no leukocytosis normal platelets and hemoglobin, renal function is not elevated today electrolytes are appropriate, LFTs are appropriate. UA shows no acute infection negative for nitrates leuks, no bacteria, 1-5 RBCs and 1-5 white cells with trace blood. Patient's CT abdomen pelvis shows diffuse hepatic steatosis subcentimeter hepatic lesions likely cysts or hemangiomas gallbladder distended with polyps or colic sizes. There is a mass in the left adrenal gland as well as the right adrenal gland and an enhancing heterogeneous mass in the upper left kidney that is 5.2 x 4.2 cm and a right nonobstructing intrarenal calculi with a severe right hydronephrosis with obstructing proximal calculi that is 1.8 x 1.1 cm no free fluid. Bladder is nondistended with colon and small bowel otherwise unremarkable and no suspicious lytic or sclerotic osseous lesions noted. Discussed findings with patient her pain has been difficult to control here in the department. She is not having active vomiting deny appear to be septic or infected. She does have an appointment this upcoming Wednesday. We will reach out to urology through [facility]/ as patient would likely benefit from lithotripsy versus surgical intervention. On recheck patient had several doses of narcotic pain medication without improvement tried lidocaine IV which was minimally helpful and then Toradol which patient did not find quite helpful. She is not been taking any form of NSAIDs at home. Call out to Urology, there were some technical difficulties getting CT images up awaiting call back still at 1201. Patient continues to feel much more comfortable. Patient's pain medication has been wearing off. She does feel improved still. Reviewed her findings, she would like to return home we still have not had call back from Urology at [facility]. They have involved their medical assistant per diem. I feel she is safe for discharge home she has a appointment on Wednesday. Discussed with patient she feels comfortable with this plan. We discussed that any worsening symptoms or other concerns to return for repeat evaluation as there is potential for injury to her kidney and that she does need ultimately treatment. Did offer to have patient stay and we can call other facilities to talk with Urology. She defers at this time. Discussed return precautions she bent best pain relief with Toradol so will give a prescription for oral Toradol, change or oxycodone with Tylenol as needed so she has more control of her pain management with strict return precautions. Discharge Plan Departure Patient Disposition: Home Clinical Impression: Kidney stone on right side, Hydronephrosis, right, Left kidney mass Activity Restrictions/Additional Instructions: Your imaging today continues to show large 1.8 x 1.1 cm right Follow-up in with urology for recheck if you have not passed your stone in the next 2-3 days. Call for an appointment. It is also noted that you have large mass in the left kidney as well as masses on the left and right adrenal glands on both sides. There is a still a call out to Urology at [facility]. You can take your next dose of ketorolac or Toradol at 3:00 p.m. Take Flomax once daily until gone. You may take Toradol 1 tablet every 6 hours as needed for pain and/or Tylenol up to a 1000 mg every 8 hours as needed for pain. Toradol is related to ibuprofen do not take other NSAIDs such as ibuprofen, Aleve or naproxen with this medication. If this is inadequate for pain control you may take narcotic pain medication as prescribed. This medication can make you sleepy do not drive, perform hazardous activities or make any major decisions while taking it. This medication will make you constipated please take a stool softener once to twice daily until stools are soft and regular. Strain your urine and keep the kidney stone for analysis if you are able to catch it. Prescription sent to [facility] in [place]. Please return for fevers, rapidly worsening flank or abdominal pain, lightheadedness or passing out, new chest pain or shortness of breath, persistent vomiting, inability to urinate, black or bloody stools or other new or concerning symptoms. Prescriptions: New ketorolac 10 mg tablet 10 mg PO Q6H PRN (Reason: pain) 5 Days Qty: 20 0RF oxycodone 5 mg tablet 5 mg PO Q6H PRN (Reason: pain) Qty: 10 0RF No Action metoprolol succinate 50 mg tablet extended release 24 hr 50 mg PO BID sertraline 100 mg tablet 100 mg PO DAILY losartan 25 mg tablet 25 mg PO DAILY ibuprofen 200 mg tablet 400 mg PO Q6H Qty: 60 0RF oxycodone 5 mg tablet 5 mg PO Q6H PRN (Reason: pain) Qty: 20 0RF acetaminophen [Tylenol] 325 mg capsule 650 mg PO QID PRN (Reason: pain) Qty: 60 0RF Referrals: Adriel Sotelo MD [Primary Care Provider] - Stand Alone Forms: Patient Portal/API
--- NOTE | 2023-02-09 05:56 | DI.CT.S_ITS ---
PROCEDURE: CT ABDOMEN PELVIS W CON INDICATIONS: low pelvic pain TECHNIQUE: After the administration of intravenous contrast, axial sections acquired from the lung bases to the pubic symphysis. Coronal and sagittal reformats were performed. For radiation dose reduction, the following was used: automated exposure control, adjustment of mA and/or kV according to patient size. COMPARISON: None. FINDINGS: Image quality: Excellent. Lung bases: Small hiatal hernia. Heart: No significant findings. ABDOMEN: Liver: Low attenuating lesions in the liver, presumably lipomas versus cysts. Gallbladder: Foci adherent to the gallbladder wall measuring up to 1 centimeter. No wall thickening. Biliary ducts: Unremarkable. Pancreas: Unremarkable. Spleen: Unremarkable. Adrenal Glands: Bilateral adrenal masses, 1 centimeter on the right and 2.2 centimeters on the left.. Kidneys and Ureters: 5.2 centimeter mass along the lateral margin of the left kidney. This mass does not reach the perirenal fascia. Renal vein is widely patent. Obstructing 1.2 centimeter stone within the right UVJ (968 Hounsfield unit), resulting in severe hydronephrosis and slightly degree laid nephrogram. Additional right-sided nonobstructing nephrolithiasis, measuring up to 8 millimeters (544 Hounsfield unit). Stomach and Bowel: Colonic diverticulosis without evidence of diverticulitis. Normal appendix. Peritoneum: No abnormal intraperitoneal fluid. No free air. Ventral Wall: No hernias. Abdominal Nodes: No retroperitoneal or mesenteric adenopathy by size criteria. Vessels: Aorta and inferior vena cava are normal in size. PELVIS: Pelvic Organs: Unremarkable. Bladder: Unremarkable. Pelvic Nodes: No enlarged lymph nodes. Miscellaneous: No hernias are seen. Bones: Unremarkable. IMPRESSION: Obstructing 1.2 centimeter stone within the right UVJ, resulting in severe hydronephrosis. Heterogeneous left renal mass measuring 5.2 centimeters, renal cell carcinoma until proven otherwise. Bilateral adrenal nodules, indeterminate for metastatic disease. Dictated by: Cedrick Leiva M.D. on 02/09/2023 at 8:22 Approved by: Cedrick Leiva M.D. on 02/09/2023 at 8:30
[2023-02-09] MEDS: SODIUM CHLORIDE 0.9% 1,000 ML 1000 ML IV (06:10)
[2023-02-09] MEDS: HYDROMORPHONE 0.5 MG INJ IV ×4 (06:10→13:46)
[2023-02-09] MEDS: ONDANSETRON 4 MG/2 ML INJ IV (06:10)
[2023-02-09] MEDS: METOPROLOL ER 50 MG TABLET PO (06:17)
[2023-02-09 06:20] LABS: Add Manual Diff / Slide Review NO; Basophils Absolute Auto 100 /uL (0-100); Basophils Percent Auto 0.7 % (0-2); Eosinophils Absolute Auto 200 /uL (0-450); Eosinophils Percent Auto 1.8 % (2-4); Hematocrit 39.4 % (36-46); Lymphocytes Absolute Auto 1500 /uL (1100-4500); Lymphocytes Percent Auto 14.6 % (25-40); Mean Corpuscular HGB Conc 32.9 % (30-36); Mean Corpuscular Hemoglobin 28.2 PG (26-34); Mean Corpuscular Volume 85.8 fL (80-100); Monocytes Absolute Auto 700 /uL (0-900); Monocytes Percent Auto 6.7 % (3-14); Neutrophils Absolute Auto 7700 /uL (1500-7000); Neutrophils Percent Auto 76.2 % (50-75); Platelet Count 276 X10^3/uL (150-400); Red Cell Distribution Width 14.7 % (11.6-14.8); White Blood Cell Count 10.1 X10^3/uL (4.5-11.0)
[2023-02-09 06:42] LABS: Alanine Aminotransferase 28 IU/L (<35); Albumin 4.3 g/dL (3.5-5.0); Albumin Globulin Ratio 1.1 (1.0-2.8); Alkaline Phosphatase 53 U/L (38-126); Aspartate Aminotransferase 31 IU/L (14-36); BUN Creatinine Ratio 19.5 (6-22); Bilirubin Total 0.8 mg/dL (0.2-1.3); Blood Urea Nitrogen 17 mg/dL (7-17); Calcium 9.5 mg/dL (8.4-10.2); Carbon Dioxide 28 mmol/L (22-32); Chloride 104 mmol/L (98-107); Estimated Glomerular Filt Rate > 60 mL/min (>60); Globulin 3.9 g/dL (1.7-4.1); Glucose 115 mg/dL (80-110); HEMOLYSIS 21 (0-50); Potassium 3.6 mmol/L (3.4-5.1); Sodium 139 mmol/L (137-145); Total Protein 8.2 g/dL (6.3-8.2)
[2023-02-09 07:44] LABS: Appearance Urine UA CLEAR; Bilirubin Urine UA NEGATIVE (NEGATIVE); Color Urine UA YELLOW; Glucose Urine UA NEGATIVE (Negative); Ketones Urine UA NEGATIVE (NEGATIVE); Leukocyte Esterase Urine UA NEGATIVE (NEGATIVE); Nitrite Urine UA NEGATIVE (Negative); Occult Blood Urine UA TRACE-INTACT (Negative); Protein Urine UA NEGATIVE (Negative); Specific Gravity Urine UA 1.015 (1.000-1.035); Urobilinogen Urine UA 0.2 E.U./dL (0.2)
[2023-02-09 07:56] LABS: RBC Urine 1-5/HPF (0-5/HPF)
[2023-02-09 07:57] LABS: Bacteria Urine None Seen; Culture Indicated Urine Cult Not Indicated; Squamous Epithelial Cell Urine None Seen (0-5/HPF); WBC Urine 1-5/HPF (0-5/HPF)
[2023-02-09] MEDS: LIDOCAINE 2% (PF) 5 ML in SODIUM CHLORIDE 0.9% 50 ML 330 ML IV (08:13)
[2023-02-09] MEDS: KETOROLAC 30 MG/ML VIAL 15 MG IV (08:41)
== END 2023-02-09 14:20 | disposition home or self-care (01) ==
PROVIDERS: Emergency Medicine; Emergency Provider Emergency Medicine; PCP Family Medicine
DX: N13.2 Hydronephrosis with renal and ureteral calculous obstruction (principal); N28.89 Other specified disorders of kidney and ureter
CPT/HCPCS: 36415; 74177; 80053; 81001; 85025; 96365; 96375; 99284; J1170; J1885; J2405; Q9967

== ENCOUNTER 2023-03-07 23:58 | Emergency (ER) | payer OTHER, SELFPAY ==
[2023-03-08] VITALS (8 sets, daily range): BP systolic 181–200; BP diastolic 91–98; PULSE 74–79; RESP 16; TEMP 36.6; O2SAT 96–99; BMI 24.7
--- NOTE | 2023-03-08 00:23 | ED_ITS ---
HPI - Extremity Problem General Chief complaint: Extremity Problem,Nontraumatic Stated complaint: legs are cramping and feet feel frozen Time Seen by Provider: 03/08/23 00:15 Source: patient Mode of arrival: Ambulatory History of Present Illness HPI Narrative: 62-year-old woman with a right-sided 6 mm obstructing stone in the right renal pelvis initially diagnosed in January of this year. She now has a nephrostomy tube in place and apparently is scheduled for stone removal on March 25. With same CT scan she had an incidentally found large left renal mass concerning for a tumor. Apparently they are waiting to deal with the kidney stone before biopsying the mass. They have been having significant difficulty in accessing primary care doctors, specialty doctors and arranging any type of semi urgent appointments are scheduling. In the meantime she is complaining of back pain and bilateral peripheral neuropathy symptoms with burning over the bottom of both feet and complaints of the bottom of both feet are numb while her thighs are warm. She comes in tonight because she simply has not been able to sleep and is miserable with the peripheral neuropathy symptoms. She notes that these symptoms have been present for quite a period of time seemed to have worsened recently concurrent with difficulty sleeping. She also notes that she has run out of her metoprolol and has not been able to get that filled and is having s ignificantly elevated blood pressures. She currently has no new acute issues, no fevers no abdominal pain, no headache. Urostomy tube on the right has appropriate output. Related Data Home Medications Medication Instructions Recorded Confirmed losartan 25 mg tablet 25 mg PO DAILY 08/21/21 10/16/21 metoprolol succinate 50 mg 50 mg PO BID 08/21/21 10/16/21 tablet,extended release 24 hr sertraline 100 mg tablet 100 mg PO DAILY 08/21/21 10/16/21 Previous Rx's Medication Instructions Recorded acetaminophen 325 mg capsule 650 mg (2 x 325 mg) PO QID PRN 10/08/21 (Tylenol) pain #60 caps ibuprofen 200 mg tablet 400 mg (2 x 200 mg) PO Q6H #60 tabs 10/08/21 oxycodone 5 mg tablet 5 mg PO Q6H PRN pain #20 tabs 10/08/21 oxycodone 5 mg tablet 5 mg PO Q6H PRN pain #10 tabs 02/09/23 gabapentin 100 mg capsule 100 mg PO BEDTIME #30 caps 03/08/23 metoprolol succinate 50 mg 50 mg PO BID #60 tabs 03/08/23 tablet,extended release 24 hr Allergies Allergy/AdvReac Type Severity Reaction Status Date / Time No Known Drug Allergies Allergy Verified 03/08/23 00:24 Review of Systems Review of Systems Narrative: Pertinent positive and negative findings as per HPI Patient History Medical History Renal mass Kidney stone Depression Hypertension Surgical History History of hysterectomy Family History Mother Hypertension Stroke Gallstones Brother Hypertension Family/Other Breast cancer Social History marital status: household members: spouse lives independently: Yes occupational status: employed Smoking Status: Never smoker alcohol intake: current Smoking Status: Never smoker alcohol intake frequency: holidays/special occasions only Substance Use Type: does not use Exam Initial Vital Signs Initial Vital Signs: Vital Signs Pulse Rate 79 03/08/23 00:11 Blood Pressure 181/92 H 03/08/23 00:11 Pulse Oximetry 96 03/08/23 00:11 General: Fatigued, in obvious discomfort but Able to give a complete and coherent history. HEENT: Moist mucous membranes, normal sclera with reactive pupils, Respiratory: Lungs are clear to auscultation, no wheezing no rales no rhonchi. Full and symmetrical air movement Cardiac: Regular rate and rhythm no murmurs no bruits Abdomen: Soft, nontender, good bowel tones, no flank pain Skin: Warm and dry, no rashes Spine: She has no point tenderness over her distal thoracic or lumbar spine Neurologic: Grossly neurologically intact with no obvious asymmetries or abnormalities. Extremities: No trauma, well perfused. Bounding posterior tibialis bilaterally. No skin breakdown or signs of infection. Psych: Cooperative, appropriate insight and affect Course Orders Ordered: Discontinued Medications Gabapentin (Gabapentin 100 Mg Capsule) 100 mg PO NOW ONE Stop: 03/08/23 00:55 Last Admin: 03/08/23 01:08 Dose: 100 mg Documented By: SIHRA Ketorolac Tromethamine (Ketorolac 30 Mg/Ml Vial) 30 mg IM NOW ONE Stop: 03/08/23 01:30 Metoprolol Succinate (Metoprolol Er 50 Mg Tablet) 50 mg PO NOW ONE Stop: 03/08/23 00:26 Last Admin: 03/08/23 00:38 Dose: 50 mg Documented By: SHIRA Metoprolol Succinate (Metoprolol Er 50 Mg Tablet) 50 mg PO NOW ONE Stop: 03/08/23 00:55 Last Admin: 03/08/23 01:08 Dose: 50 mg Documented By: SHIRA Vital Signs Vital signs: Vital Signs - 8 hr 03/08/23 00:11 03/08/23 00:12 03/08/23 00:25 Temperature 98 F Pulse Rate 79 78 Pulse Rate [Right Dorsalis Pedis] 77 Respiratory Rate 16 Blood Pressure 181/92 H 181/92 H Pulse Oximetry 96 96 Oxygen Delivery Method Room Air 03/08/23 00:30 03/08/23 00:30 03/08/23 00:38 Temperature Pulse Rate 77 76 Pulse Rate [Right Dorsalis Pedis] Respiratory Rate Blood Pressure 183/91 H 183/91 H Pulse Oximetry 97 Oxygen Delivery Method 03/08/23 01:00 03/08/23 01:00 03/08/23 01:08 Temperature Pulse Rate 75 78 Pulse Rate [Right Dorsalis Pedis] Respiratory Rate Blood Pressure 200/98 H 200/98 H Pulse Oximetry 99 Oxygen Delivery Method 03/08/23 01:30 03/08/23 01:30 Temperature Pulse Rate 74 Pulse Rate [Right Dorsalis Pedis] Respiratory Rate Blood Pressure 190/93 H Pulse Oximetry 98 Oxygen Delivery Method MDM - Extremity (Nontraumatic) MDM Narrative Medical decision making narrative: CC: Burning pain in the bottom of her feet Complicating co-morbidities: Recently diagnosed large right obstructing renal stone and large left renal mass concerning for cancer Data collected from: patient, Social determinants of health that may influence the patients condition: Difficulty in accessing primary care, specialty Care in scheduling follow-up for renal abnormalities Medical records reviewed: Recent ER visits are reviewed Differential considered: Chronic peripheral neuropathy uncertain etiology, radicular neuropathy, sleep deprivation, metastatic disease, epidural abscess Exam documented above, pertinent findings include: Exam other than subjective pain is relatively benign. There is no reproducible pain with palpation along her spine or paraspinous processes. Both dorsalis pedis and anterior tibialis pulses are bounding. There was no sign of infection and no significant lower extremity edema. She is no abdominal pain. Urostomy site is appropriate Lab Test results independently reviewed as above. Pertinent findings: We discussed testing for peripheral neuropathy and with shared decision-making decided that this was best left for outpatient follow-up. Imaging studies independently reviewed: She had lumbar spine x-rays January [address] pelvis [address] on February 09 at this hospital both of which are again reviewed with her. There is no evidence of spinal metastatic disease at that time but she did have multilevel degenerative disc disease and facet disease which certainly could explain some of the radicular pain and peripheral neuropathy she currently is experiencing. With the abdominal CT done less than a month ago I do not suspect progression of any metastatic disease and again, with shared decision-making, we opted not to do any additional imaging. Treatments: She is given oral metoprolol her usual evening dose as well as 100 mg of gabapentin Discussion: 62-year-old woman who has run out of her blood pressure medications. The metoprolol succinate 50 mg b.i.d. will be refilled for her. She is having difficulty in accessing her primary care doctor who apparently a semi-retired and works on Wednesdays and only. There is no additional options for primary care follow-up. She is been having difficulty getting into subspecialty care for kidney stones as well as the presumed kidney cancer. She and her are both frustrated and concerned that they are allowing significant time to pass between definitive diagnosis and beginning treatment should this in fact turned out to be a kidney cancer. She is not sleeping well and her chronic peripheral neuropathy does seem to be progressing. We talked about options and things that I was able to do in the emergency department and realistic expectations for pain relief. I have given her a dose of Toradol IM in the emergency department to help with the peripheral neuropathy and low back pain she is currently experiencing. We talked about the use of gabapentin as a neuromodulator medications for peripheral neuropathy type pain and a prescription for 100 mg at bedtime is given. She continues to use Tylenol as needed and finds that narcotics caused severe constipation and she would prefer to avoid that whenever possible. At this time I have no additional suggestions for her and no reason for hospital admission or additional imaging or evaluation at this time. Questions are answered and she is safe for discharge Discharge Plan Departure Patient Disposition: Home Clinical Impression: Low back pain Qualifiers: Chronicity: chronic Back pain laterality: bilateral Sciatica presence: unspecified whether sciatica present Qualified Code(s): M54.50 - Low back pain, unspecified Peripheral neuropathy Qualifiers: Peripheral neuropathy type: polyneuropathy, unspecified Qualified Code(s): G62.9 - Polyneuropathy, unspecified Instructions: DI for Peripheral Neuropathy Activity Restrictions/Additional Instructions: Thank you for coming in today I am sorry that you are continuing to suffer with all of these issues. Regarding your blood pressure, I have given you a prescription for the metoprolol. You do need to follow-up with your primary care doctor to make sure that additional refills are available Regarding the burning sensation to the bottom of both your feet, unfortunately, I suspect that this is due to peripheral neuropathy. I have given you a dose of gabapentin to try in the emergency department. If that seems to make any type of difference you can certainly try using 100 mg of gabapentin at night see if it helps decrease any of that nerve type pain. You can continue to use Tylenol to help with the pain as well. [facility] [place] I wish you well as you continue the process of dealing with your kidney stone and having that kidney mass further evaluated and diagnosed. If you find that you are getting worse or develop any new symptoms, please feel free to return to the emergency department for further evaluation. Prescriptions: New metoprolol succinate 50 mg tablet extended release 24 hr 50 mg PO BID Qty: 60 1RF gabapentin 100 mg capsule 100 mg PO BEDTIME Qty: 30 1RF No Action metoprolol succinate 50 mg tablet extended release 24 hr 50 mg PO BID sertraline 100 mg tablet 100 mg PO DAILY losartan 25 mg tablet 25 mg PO DAILY ibuprofen 200 mg tablet 400 mg PO Q6H Qty: 60 0RF oxycodone 5 mg tablet 5 mg PO Q6H PRN (Reason: pain) Qty: 20 0RF acetaminophen [Tylenol] 325 mg capsule 650 mg PO QID PRN (Reason: pain) Qty: 60 0RF oxycodone 5 mg tablet 5 mg PO Q6H PRN (Reason: pain) Qty: 10 0RF Referrals: Adriel Sotelo MD [Primary Care Provider] - Stand Alone Forms: Patient Portal/API
[2023-03-08] MEDS: METOPROLOL ER 50 MG TABLET PO ×2 (00:38→01:08)
[2023-03-08] MEDS: GABAPENTIN 100 MG CAPSULE PO (01:08)
== END 2023-03-08 01:45 | disposition home or self-care (01) ==
PROVIDERS: Emergency Provider Emergency Medicine; PCP Family Medicine
DX: M54.50 Low back pain, unspecified (principal); G62.9 Polyneuropathy, unspecified
CPT/HCPCS: 99283

== ENCOUNTER → 2023-04-09 13:28 | Outpatient (CLI) | payer OTHER, SELFPAY ==
--- NOTE | 2023-04-09 13:30 | DI.NM.S_ITS ---
PROCEDURE: NM RENAL FUNCTION W LASIX RADIOPHARMACEUTICAL: 10.0 mCi Tc-99m MAG3 IV and 20 mg furosemide IV. INDICATIONS: Calculus of kidney/Ureteral stenosis, right TECHNIQUE: The patient was hydrated orally before the examination was begun. After intravenous administration of Tc-99m MAG3, posterior abdominal radionuclide angiogram and sequential (1 minute each frame) renal images were obtained. A time-activity curve for each kidney was generated and analyzed. To evaluate for obstruction, the patient was given 40 mg furosemide via slow intravenous injection after the start of the examination. Sequential images were obtained for up to an additional 20 minutes. COMPARISON: [facility], CT, CT KIDNEY URETER BLADDER (KUB), 04/09/2023, 14:56. [facility], CT, CT ABDOMEN PELVIS W CON, 02/09/2023, 6:51. FINDINGS: Perfusion: There is decreased vascular flow to the right kidney compared to the left kidney. Morphology: Right kidney is decreased in size compared to the left kidney. No dilated collecting systems are seen. The ureters and bladder fill with tracer, and appear normal. Function: Both kidneys demonstrate normal cortical tracer uptake, with [id number] activity ranging from 3 to 5 minutes. The right kidney contributes 15.1% of total renal function. The left kidney contributes 84.9% of total renal function. Lasix stimulation: After diuretic administration, there is prompt clearance of tracer activity from the renal collecting systems in both kidneys. The half-time of emptying of tracer activity from the right pelvicaliceal system is 12 point minutes. The half-time of emptying from the left pelvicaliceal system is 7 minutes. Normal emptying half-times are less than 10 minutes; borderline ranges are from 10 to 20 minutes. IMPRESSION: 1. Right kidney is decreased in size and function. There is a right ureteral stent. Right kidney does not appear to be obstructed on the current exam. 2. Normal left renal function. 3. Right kidney contributes 15.1% of total renal function; left kidney contributes 84.9% of total renal function. Dictated by: Maryam Jeffery M.D. on 04/09/2023 at 15:42 Approved by: Maryam Jeffery M.D. on 04/09/2023 at 22:26
--- NOTE | 2023-04-09 13:31 | DI.CT.S_ITS ---
PROCEDURE: CT KIDNEY URETER BLADDER (KUB) INDICATIONS: Calculus of kidney/Ureteral stenosis, right TECHNIQUE: Axial sections were acquired from the lung bases to the pubic symphysis. Coronal and sagittal reformats were performed. For radiation dose reduction, the following was used: automated exposure control, adjustment of mA and/or kV according to patient size. COMPARISON: [facility], CT, CT ABDOMEN PELVIS W CON, 02/09/2023, 6:51. FINDINGS: Image quality: Diagnostic. Lower Chest: There is a 3 millimeter right middle lobe nodule (3/2). Linear atelectasis versus scarring within the left lung base. URINARY: Right Kidney: No stones or hydronephrosis. Right renal simple appearing cyst at the inferior pole. Right Ureter: Right ureteral stent in place. No stones are seen along the course of the ureter. Left Kidney: Redemonstration of left renal mass measuring up to 5.2 centimeters. Few nonobstructing left renal calcifications are noted. No hydronephrosis. Left Ureter: No hydroureter. Bladder: Normal wall thickness. No stones. ABDOMEN: Liver: Low-attenuation lesions within the liver, lipomas versus simple cysts, stable compared to prior. Gallbladder: Gallstones are present. Gallbladder is contracted. Biliary ducts: No biliary dilation. Pancreas: No ductal dilation. Spleen: Size is within normal limits. Adrenal Glands: Bilateral adrenal nodules are redemonstrated, greater on the left. Stomach and Bowel: Small hiatal hernia. Normal colonic caliber, without significant wall thickening. Diverticulosis without evidence of acute diverticulitis. Normal appendix. Peritoneum: No abnormal intraperitoneal fluid. No free air. Ventral Wall: No hernia. Abdominal Nodes: No enlarged retroperitoneal or mesenteric lymph nodes. Vessels: Aorta and inferior vena cava are normal in size. Atherosclerotic vascular calcifications. PELVIS: Pelvic Organs: Unremarkable. Pelvic Nodes: Unremarkable. Miscellaneous: No inguinal hernias are seen. Bones: Degenerative changes of the spine. Partially visualized subacute/chronic right rib fracture. IMPRESSION: 1. Right ureteral stent in place. No hydronephrosis or stones are seen on the right. 2. Nonobstructing tiny left renal calcifications. No hydronephrosis. 3. Redemonstration of left renal mass measuring up to 5.2 centimeters, consistent with renal cell carcinoma until proven otherwise. 4. Bilateral indeterminate adrenal nodules, metastatic disease is not excluded. 5. There is a 3 millimeter right middle lobe nodule, nonspecific. Metastatic disease is not excluded and attention on follow-up exams is recommended. 6. Cholelithiasis. Dictated by: Tyler Iverson M.D. on 04/09/2023 at 15:48 Approved by: Tyler Iverson M.D. on 04/09/2023 at 15:55
== END ==
LOC: NUCM 13:29
PROVIDERS: PCP Family Medicine; Referring Provider Urology; Visit Provider Urology
DX: N20.0 Calculus of kidney (principal); N13.5 Crossing vessel and stricture of ureter without hydronephrosis; N28.9 Disorder of kidney and ureter, unspecified; E27.9 Disorder of adrenal gland, unspecified; R91.1 Solitary pulmonary nodule; K80.20 Calculus of gallbladder without cholecystitis without obstruction; Z96.0 Presence of urogenital implants
CPT/HCPCS: 74176; 78708; A9562

== ENCOUNTER 2023-04-17 20:08 | Emergency (ER) | payer OTHER, SELFPAY ==
[2023-04-17] VITALS (12 sets, daily range): BP systolic 168–245; BP diastolic 88–109; PULSE 62–79; RESP 16–18; TEMP 37.2; O2SAT 96–99; BMI 24.3
[2023-04-17] MEDS: HYDROMORPHONE 0.5 MG INJ IV (20:46)
[2023-04-17 21:01] LABS: Add Manual Diff / Slide Review NO; Basophils Absolute Auto 100 /uL (0-100); Basophils Percent Auto 0.8 % (0-2); Eosinophils Absolute Auto 200 /uL (0-450); Eosinophils Percent Auto 2.1 % (2-4); Hematocrit 37.1 % (36-46); Hemoglobin 12.4 g/dL (12.0-16.0); Lymphocytes Absolute Auto 2200 /uL (1100-4500); Lymphocytes Percent Auto 24.4 % (25-40); Mean Corpuscular HGB Conc 33.3 % (30-36); Mean Corpuscular Volume 90.2 fL (80-100); Monocytes Absolute Auto 700 /uL (0-900); Monocytes Percent Auto 8.1 % (3-14); Neutrophils Absolute Auto 5700 /uL (1500-7000); Neutrophils Percent Auto 64.6 % (50-75); Platelet Count 269 X10^3/uL (150-400); Red Blood Cell Count 4.12 X10^6/uL (4.0-5.2); Red Cell Distribution Width 18.7 % (11.6-14.8); White Blood Cell Count 8.8 X10^3/uL (4.5-11.0)
[2023-04-17 21:12] LABS: Alanine Aminotransferase 26 IU/L (<35); Albumin 4.2 g/dL (3.5-5.0); Albumin Globulin Ratio 1.2 (1.0-2.8); Aspartate Aminotransferase 41 IU/L (14-36); BUN Creatinine Ratio 25.4 (6-22); Bilirubin Total 1.3 mg/dL (0.2-1.3); Blood Urea Nitrogen 16 mg/dL (7-17); Carbon Dioxide 25 mmol/L (22-32); Chloride 103 mmol/L (98-107); Estimated Glomerular Filt Rate > 60 mL/min (>60); Globulin 3.4 g/dL (1.7-4.1); Potassium 4.2 mmol/L (3.4-5.1); Sodium 138 mmol/L (137-145); Total Protein 7.6 g/dL (6.3-8.2)
[2023-04-17 21:13] LABS: Alkaline Phosphatase 36 U/L (38-126); Calcium 9.3 mg/dL (8.4-10.2); Glucose 84 mg/dL (80-110); Lipase 90 U/L (23-300)
[2023-04-17 21:20] LABS: HEMOLYSIS 119 (0-50)
[2023-04-17 22:18] LABS: Bacteria Urine Few (2-10); RBC Urine >100/HPF (0-5/HPF); Squamous Epithelial Cell Urine 1-5 /HPF (0-5/HPF); Urine Volume 10mL (spun); WBC Urine 5-10/HPF (0-5/HPF)
[2023-04-17 22:19] LABS: Culture Indicated Urine Cult Not Indicated
--- NOTE | 2023-04-17 22:31 | ED_ITS ---
HPI - Back Pain/Injury General Chief Complaint: Back Pain/Injury Stated Complaint: back and leg px Time Seen by Provider: 04/17/23 20:39 Source: patient History of Present Illness HPI Narrative: Patient is a 62-year-old female with fairly new diagnosis of a left renal mass, with a right ureteral stent presenting today with worsening right sided pain. She reports that over the last 3 days she has had increase in pain. No nausea vomiting or fever. She is followed at by the [facility] Dr. Benites. She actually had a CT scan and a renal scan done on April 09 of this month. It again showed left renal mass measuring 5.2 cm with nonobstructing stones she had simple right cyst appearing with right ureteral stent in place no stone seen along the course of the ureter. Today really complaining of right flank pain right lower abdominal quadrant pain radiating 3 days without fever Related Data Home Medications Medication Instructions Recorded Confirmed losartan 25 mg tablet 25 mg PO DAILY 08/21/21 10/16/21 metoprolol succinate 50 mg 50 mg PO BID 08/21/21 10/16/21 tablet,extended release 24 hr sertraline 100 mg tablet 100 mg PO DAILY 08/21/21 10/16/21 Previous Rx's Medication Instructions Recorded acetaminophen 325 mg capsule 650 mg (2 x 325 mg) PO QID PRN 10/08/21 (Tylenol) pain #60 caps ibuprofen 200 mg tablet 400 mg (2 x 200 mg) PO Q6H #60 tabs 10/08/21 oxycodone 5 mg tablet 5 mg PO Q6H PRN pain #20 tabs 10/08/21 oxycodone 5 mg tablet 5 mg PO Q6H PRN pain #10 tabs 02/09/23 gabapentin 100 mg capsule 100 mg PO BEDTIME #30 caps 03/08/23 metoprolol succinate 50 mg 50 mg PO BID #60 tabs 03/08/23 tablet,extended release 24 hr cephalexin 500 mg capsule 500 mg PO BID 5 days #10 caps 04/18/23 Allergies Allergy/AdvReac Type Severity Reaction Status Date / Time No Known Drug Allergies Allergy Verified 03/08/23 00:24 Patient History Medical History Renal mass Kidney stone Depression Hypertension Surgical History History of hysterectomy Family History Mother Hypertension Stroke Gallstones Brother Hypertension Family/Other Breast cancer Social History marital status: household members: spouse lives independently: Yes occupational status: employed Smoking Status: Never smoker alcohol intake: current Smoking Status: Never smoker alcohol intake frequency: holidays/special occasions only Substance Use Type: does not use Exam Initial Vital Signs Initial Vital Signs: Vital Signs Temperature 98.9 F 04/17/23 20:09 Pulse Rate 79 04/17/23 20:09 Respiratory Rate 18 04/17/23 20:09 Blood Pressure 168/88 H 04/17/23 20:09 Pulse Oximetry 98 04/17/23 20:09 Oxygen Delivery Method Room Air 04/17/23 20:09 GENERAL: Alert pleasant 62-year-old female and in no acute distress. HEENT: Head atraumatic,EOMI, pupils reactive, face symmetric, moist mucous membranes CARDIOVASCULAR: Regular rate and rhythm without murmurs, rubs or gallops. RESPIRATORY: Breath sounds equal bilaterally, no wheezes rales or rhonchi. ABDOMEN: Soft, minimal right lower quadrant pain : Minimal right CVA tenderness EXTREMITIES: Normal range of motion, no clubbing or edema. Neurovascularly intact NEUROLOGICAL: Alert and oriented x4.Normal gait and speech. Cranial nerves II through XII grossly intact. SKIN: Warm, dry, no laceration, no petechiae, no rashes or lesions. Course Orders Ordered: ED Orders 04/17/23 20:42 CBC Auto Diff [Complete Blood Count AUTO DIFF] Stat CMP [Comprehensive Metabolic Panel] Stat Lipase Stat 04/17/23 21:49 Urine Culture Stat Urine Microscopic Stat 04/17/23 22:44 XR abdomen min 2V Stat Discontinued Medications Hydromorphone HCl (Hydromorphone 0.5 Mg Inj) 0.5 mg IV NOW ONE Stop: 04/17/23 20:40 Last Admin: 04/17/23 20:46 Dose: 0.5 mg Documented By: MERLIN Hydromorphone HCl (Hydromorphone 0.5 Mg Inj) 0.5 mg IV NOW ONE Stop: 04/18/23 00:22 Last Admin: 04/18/23 00:29 Dose: 0.5 mg Documented By: CONI Ceftriaxone Sodium 1,000 mg/ (Sodium Chloride) 100 mls @ 200 mls/hr IV NOW ONE Stop: 04/17/23 22:45 Last Infusion: 04/18/23 00:15 Dose: Infused Documented By: Admin: 04/17/23 23:12 Dose: 200 mls/hr Documented By: CONI Ketorolac Tromethamine (Ketorolac 30 Mg/Ml Vial) 15 mg IV NOW ONE Stop: 04/17/23 22:45 Last Admin: 04/17/23 23:11 Dose: 15 mg Documented By: CONI Vital Signs Vital signs: Vital Signs - 8 hr 04/17/23 21:00 04/17/23 21:07 04/17/23 21:47 Pulse Rate 64 63 76 Respiratory Rate 16 Blood Pressure 214/95 H Pulse Oximetry 96 97 99 Oxygen Delivery Method Room Air 04/17/23 21:47 04/17/23 22:00 04/17/23 22:00 Pulse Rate 63 Respiratory Rate Blood Pressure 231/98 H 214/94 H Pulse Oximetry 98 Oxygen Delivery Method 04/17/23 22:30 04/17/23 22:30 04/17/23 23:08 Pulse Rate 64 67 Respiratory Rate 18 Blood Pressure 204/92 H Pulse Oximetry 97 99 Oxygen Delivery Method 04/17/23 23:09 04/17/23 23:09 04/17/23 23:12 Pulse Rate 66 Respiratory Rate Blood Pressure 223/96 H 219/98 H Pulse Oximetry 98 Oxygen Delivery Method 04/17/23 23:12 04/17/23 23:30 04/18/23 00:00 Pulse Rate 65 62 61 Respiratory Rate Blood Pressure Pulse Oximetry 99 97 97 Oxygen Delivery Method 04/18/23 00:30 Pulse Rate 61 Respiratory Rate Blood Pressure 206/96 H Pulse Oximetry 98 Oxygen Delivery Method MDM - Back Pain/Injury Lab Data 04/17/23 20:42 04/17/23 20:42 Labs: Lab Results 04/17/23 04/17/23 Range/Units 20:42 21:49 WBC 8.8 (4.5-11.0) X10^3/uL RBC 4.12 (4.0-5.2) X10^6/uL Hgb 12.4 (12.0-16.0) g/dL Hct 37.1 (36-46) % MCV 90.2 (80-100) fL MCH 30.0 (26-34) PG MCHC 33.3 (30-36) % RDW 18.7 H (11.6-14.8) % Plt Count 269 (150-400) X10^3/uL Neut % (Auto) 64.6 (50-75) % Lymph % (Auto) 24.4 L (25-40) % [place] % (Auto) 8.1 (3-14) % Eos % (Auto) 2.1 (2-4) % Baso % (Auto) 0.8 (0-2) % Neut # (Auto) 5700 (4974-8215) /uL Lymph # (Auto) 2200 (0223-3863) /uL [place] # (Auto) 700 (0-900) /uL Eos # (Auto) 200 (0-450) /uL Baso # (Auto) 100 (0-100) /uL Sodium 138 (137-145) mmol/L Potassium 4.2 (3.4-5.1) mmol/L Chloride 103 (98-107) mmol/L Carbon Dioxide 25 (22-32) mmol/L BUN 16 (7-17) mg/dL Creatinine 0.63 (0.52-1.04) mg/dL Estimated GFR > 60 (>60) mL/min BUN/Creatinine Ratio 25.4 H (6-22) Glucose 84 (80-110) mg/dL Calcium 9.3 (8.4-10.2) mg/dL Total Bilirubin 1.3 (0.2-1.3) mg/dL AST 41 H (14-36) IU/L ALT 26 (<35) IU/L Alkaline Phosphatase 36 L (38-126) U/L Total Protein 7.6 (6.3-8.2) g/dL Albumin 4.2 (3.5-5.0) g/dL Globulin 3.4 (1.7-4.1) g/dL Albumin/Globulin Ratio 1.2 (1.0-2.8) Lipase 90 (23-300) U/L Urine RBC >100/hpf H (0-5/HPF) Urine WBC 5-10/hpf H (0-5/HPF) Ur Squamous Epith Cells 1-5 /hpf (0-5/HPF) Urine Bacteria Few (2-10) H (None) Ur Culture Indicated? Cult not indicated Vol Urine Centrifuged 10ml (spun) Urine Dip Bedside Urine Glucose Negative Bedside Urine Bilirubin - Negative Bedside Urine Ketone + 15 Urine Specific [place] 1.010 Bedside Urine Occult Blood +++ Bedside Urine pH 6.0 Bedside Urine Protein +/- 15 Bedside Urine Urobilinogen +/- 1mg Bedside Urine Nitrite - Negative Bedside Urine Leukocytes + 70 Esterase Imaging Data Abdominal x-ray: Radiologist's Impression: PROCEDURE: XR ABDOMEN MIN 2V INDICATIONS: stent placement TECHNIQUE: 2 views of the abdomen were acquired. COMPARISON: None. FINDINGS: Surgical changes and devices: Double pigtail right ureteral stent again noted.. Bowel: No pneumoperitoneum. The bowel gas pattern is normal. Soft tissues: No masses; visualized solid organ contours appear normal in size. No suspicious abdominal calcifications. Bones: No suspicious bony abnormalities. IMPRESSION: Non-obstructive bowel gas pattern. Normal positioning of right double pigtail ureteral stent. Dictated by: Romain Lopez M.D. on 04/17/2023 at 23:38 MDM Narrative Medical decision making narrative: Patient is a 62-year-old female with newly diagnosed left renal cancer with a right ureteral stent presenting today with right sided flank and abdominal pain. She was given Dilaudid initially to help which it did. An actually Toradol has helped the most. Blood work has been reviewed she has no leukocytosis or PALOMA. X-ray shows stent in place She had a full CT done 8 days in ago which did not show any sort of nephrolithiasis or other abdominal pathology she has a persistent left renal mass Patient reports that she is being followed by Dr. Benites at [facility] and actually has a tele health appointment him in [address] results and next. Urinalysis does show red blood cells WBCs bacteria, culture is pending. Possible minor UTI. She is given 1 dose of Rocephin. No evidence of sepsis or severe infection. At this time pain is controlled she does not have fever or leukocytosis not see need for imaging this time. She is noted to be quite hypertensive in the ED he was have history of hypertension, she has had other visits with similarly elevated blood pressure. No concern for dissection. Discharge Plan Departure Patient Disposition: Home Clinical Impression: UTI (urinary tract infection) Instructions: DI for Urinary Tract Infection (UTI) Activity Restrictions/Additional Instructions: *You have been diagnosed with UTI *What to do: At this time you may have a minor infection. The stent seems to be in place. CT from less than 10 days ago did not show any sign of new kidney stone on the right *Continue to take medications as directed Keflex 500 mg twice a day *Follow up with your primary care provider in 2-3 days or call [phone] *Return to ER if you should have increasing pain nausea vomiting weakness or any new, worsening or concerning symptoms Prescriptions: New cephalexin 500 mg capsule 500 mg PO BID 5 Days Qty: 10 0RF No Action metoprolol succinate 50 mg tablet extended release 24 hr 50 mg PO BID sertraline 100 mg tablet 100 mg PO DAILY losartan 25 mg tablet 25 mg PO DAILY ibuprofen 200 mg tablet 400 mg PO Q6H Qty: 60 0RF oxycodone 5 mg tablet 5 mg PO Q6H PRN (Reason: pain) Qty: 20 0RF acetaminophen [Tylenol] 325 mg capsule 650 mg PO QID PRN (Reason: pain) Qty: 60 0RF oxycodone 5 mg tablet 5 mg PO Q6H PRN (Reason: pain) Qty: 10 0RF metoprolol succinate 50 mg tablet extended release 24 hr 50 mg PO BID Qty: 60 1RF gabapentin 100 mg capsule 100 mg PO BEDTIME Qty: 30 1RF Referrals: Adriel Sotelo MD [Primary Care Provider] - Marlon Benites MD [Non-Staff] - Stand Alone Forms: Patient Portal/API
--- NOTE | 2023-04-17 22:44 | DI.RAD.S_ITS ---
PROCEDURE: XR ABDOMEN MIN 2V INDICATIONS: stent placement TECHNIQUE: 2 views of the abdomen were acquired. COMPARISON: None. FINDINGS: Surgical changes and devices: Double pigtail right ureteral stent again noted.. Bowel: No pneumoperitoneum. The bowel gas pattern is normal. Soft tissues: No masses; visualized solid organ contours appear normal in size. No suspicious abdominal calcifications. Bones: No suspicious bony abnormalities. IMPRESSION: Non-obstructive bowel gas pattern. Normal positioning of right double pigtail ureteral stent. Dictated by: Romain Lopez M.D. on 04/17/2023 at 23:38 Approved by: Romain Lopez M.D. on 04/17/2023 at 23:38
[2023-04-17] MEDS: KETOROLAC 30 MG/ML VIAL 15 MG IV (23:11)
[2023-04-17] MEDS: cefTRIAXone 1,000 MG in SODIUM CHLORIDE 0.9% 100 ML 200 MG IV (23:12)
[2023-04-18] VITALS: PULSE 61; O2SAT 97
[2023-04-18] MEDS: HYDROMORPHONE 0.5 MG INJ IV (00:29)
[2023-04-18 00:30] VITALS: BP 206/96; PULSE 61; O2SAT 98
== END 2023-04-18 00:55 | disposition home or self-care (01) ==
PROVIDERS: Emergency Provider Emergency Medicine; PCP Family Medicine
DX: N39.0 Urinary tract infection, site not specified (principal); C64.2 Malignant neoplasm of left kidney, except renal pelvis; Z96.0 Presence of urogenital implants
CPT/HCPCS: 36415; 74019; 80053; 81003; 81015; 83690; 85025; 87086; 96365; 96375; 96376; 99284; J0696; J1170; J1885

== ENCOUNTER 2023-05-08 14:50 | Emergency (ER) | payer OTHER, SELFPAY ==
[2023-05-08] VITALS (34 sets, daily range): BP systolic 182–225; BP diastolic 76–121; PULSE 63–79; RESP 15–26; TEMP 36.9; O2SAT 93–99; BMI 23.6
--- NOTE | 2023-05-08 15:29 | DI.MRI.S_ITS ---
PROCEDURE: MR THORACIC SPINE WO/W CON INDICATIONS: mass seen on lumbar TECHNIQUE: Noncontrast sagittal T1 spin echo and T2 fast spin echo, sagittal STIR, axial T1 and T2 fast spin echo through the thoracic spine. After the administration of contrast, axial and sagittal T1 spin echo with fat saturation through the thoracic spine. COMPARISON: [facility], MR, MR LUMBAR SPINE WO/W CON, 05/08/2023, 16:36. [facility], CT, CT KIDNEY URETER BLADDER (KUB), 04/09/2023, 14:56. FINDINGS: Image quality: Diagnostic. Alignment and curvature: There is normal bony alignment. Marrow: Marrow is of normal overall signal. No acute vertebral body compression fractures. Spinal cord: There is an ovoid mass seen involving the distal spinal cord, which is seen from the mid T11 level through the L1-L2 level. This mass measures 7 cm craniocaudal, with a greatest axial extent of 2.1 x 1.7 cm. There is marked heterogeneous enhancement seen within this mass. No additional masses can be3 seen more proximally. Apparent prominent veins can be seen posterior to the spinal cord within the mid thoracic spine, as on series 14, image 9. Paraspinous soft tissues: No paravertebral masses or abnormal enhancement. There is partial visualization of the known left renal mass Miscellaneous: Central canal and foramina appear widely patent at all scanned levels. IMPRESSION: Within the distal spinal cord, there is a 7 cm enhancing mass seen. 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 Differential diagnosis would also include other entities, including metastasis. Venous prominence can be seen posterior to the spinal cord within the mid thoracic spine. The known left renal mass is partially seen. The CT appearance is concerning for renal cell carcinoma. Dictated by: Osman Ortega M.D. on 05/08/2023 at 16:46 Approved by: Osman Ortega M.D. on 05/08/2023 at 16:53
--- NOTE | 2023-05-08 15:29 | DI.MRI.S_ITS ---
PROCEDURE: MR LUMBAR SPINE WO/W CON INDICATIONS: mass TECHNIQUE: Noncontrast sagittal T1 spin echo and T2 fast spin echo, sagittal STIR, axial T1 and T2 fast spin echo through the lumbar spine. In cases with scoliosis, additional coronal T2 fast spin echo may be performed. After the administration of contrast, sagittal and axial T1 spin echo with fat saturation through the lumbar spine. COMPARISON: [facility], MR, MR THORACIC SPINE WO/W CON, 05/08/2023, 16:36. [facility], CT, CT KIDNEY URETER BLADDER (KUB), 04/09/2023, 14:56. FINDINGS: Image quality: Excellent. Alignment and curvature: There is normal bony alignment. Marrow: Marrow is of normal overall signal. No acute vertebral body compression fractures. No suspicious marrow enhancement. Spinal cord: There is a mass seen involving the distal spinal cord, measuring 7 cm craniocaudal. This mass demonstrates prominent heterogeneous enhancement. This mass expands the spinal canal. Additional enhancing material can be seen involving distal aspect of the spinal canal, seen at the S1-S2 level, as on series 5, image 9. Paraspinous soft tissues: There is partial visualization of the known left renal mass. T12-L1: The above described mass nearly fills the spinal canal this level. There is severe left-sided neural foraminal narrowing. L1-L2: The mass is partially seen at this level. There is moderate left-sided neural foraminal narrowing at this level. L2-L3: No significant abnormality is seen. L3-L4: The disc height is well-preserved. Loss of disc signal is seen at this level. No significant neural foraminal or central canal narrowing can be seen. L4-L5: The disc height and disk signal are relatively well-preserved. Mild generalized disc bulge is seen. Mild to moderate facet hypertrophy can seen. No significant neural foraminal or central canal narrowing can be seen. L5-S1: The disc height and disk signal are relatively well-preserved. Mild generalized disc bulge is seen. Moderate facet joint hypertrophy is seen. No neural foraminal narrowing or central canal narrowing can be seen. IMPRESSION: There is a 7 cm mass seen involving the conus medullaris. 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 Differential diagnosis includes additional causes, including metastasis, however. There is additional enhancement seen involving the distal spinal canal, which is nonspecific. Additional findings: Known left renal mass, highly suspicious for renal cell carcinoma Dictated by: Osman Ortega M.D. on 05/08/2023 at 16:54 Approved by: Osman Ortega M.D. on 05/08/2023 at 17:00
--- NOTE | 2023-05-08 15:32 | ED.BACK ---
HPI - Back Pain/Injury <Adina Haas DO - Last Filed: 05/09/23 07:07> General Chief Complaint: Back Pain/Injury Stated Complaint: Buttocks and legs Pain Time Seen by Provider: 05/08/23 15:29 Source: patient History of Present Illness HPI Narrative: Patient is a 62-year-old female with history of left renal mass presumed to be renal cell carcinoma, hypertension presents today from MRI. She reports that she has had severe sharp shooting pain from her toes into her buttock so bad unable to walk. She is on gabapentin. MRI was done without contrast there was something abnormal noted about it radiology recommended an MR with contrast. She continues to have pain as difficulty with urination and bowel movements. She is noted to be quite hypertensive which actually is not uncommon for her. She has been in the ED handful of times in his wheeze very hypertensive. Related Data Home Medications Medication Instructions Recorded Confirmed ibandronate 150 mg tablet 150 mg PO QMONTH 05/08/23 05/08/23 losartan 50 mg-hydrochlorothiazide 1 tab PO BID 05/08/23 05/08/23 12.5 mg tablet polyethylene glycol 3350 17 17 g PO BID 05/08/23 05/08/23 gram/dose oral powder zolpidem 6.25 mg tablet,extended 6.25 mg PO ONCE PM PRN insomnia 05/08/23 05/08/23 release,multiphase Previous Rx's Medication Instructions Recorded acetaminophen 325 mg capsule 650 mg (2 x 325 mg) PO QID PRN 10/08/21 (Tylenol) pain #60 caps gabapentin 100 mg capsule 100 mg PO BEDTIME #30 caps 03/08/23 metoprolol succinate 50 mg 50 mg PO BID #60 tabs 03/08/23 tablet,extended release 24 hr Allergies Allergy/AdvReac Type Severity Reaction Status Date / Time No Known Drug Allergies Allergy Verified 05/08/23 20:01 Review of Systems <Clara Larose MD - Last Filed: 05/08/23 23:26> Review of Systems Narrative: Negative except as noted above Patient History <Adina Haas DO - Last Filed: 05/09/23 07:07> Medical History Renal mass Kidney stone Depression Hypertension Surgical History History of hysterectomy Family History Mother Hypertension Stroke Gallstones Brother Hypertension Family/Other Breast cancer Social History marital status: household members: spouse lives independently: Yes occupational status: employed Smoking Status: Never smoker alcohol intake: current Smoking Status: Never smoker alcohol intake frequency: holidays/special occasions only Substance Use Type: does not use Exam <Adina Haas DO - Last Filed: 05/09/23 07:07> Initial Vital Signs Initial Vital Signs: Vital Signs Temperature 98.4 F 05/08/23 15:05 Pulse Rate 77 05/08/23 15:05 Respiratory Rate 18 05/08/23 15:05 Blood Pressure 195/94 H 05/08/23 15:05 Pulse Oximetry 99 05/08/23 15:05 Oxygen Delivery Method Room Air 05/08/23 15:05 GENERAL: Alert 62-year-old female appears in pain HEENT: Head atraumatic,EOMI, pupils reactive, face symmetric, moist mucous membranes CARDIOVASCULAR: Regular rate and rhythm without murmurs, rubs or gallops. RESPIRATORY: Breath sounds equal bilaterally, no wheezes rales or rhonchi. ABDOMEN: Soft, nontender. Normoactive bowel sounds all 4 quadrants. No guarding or rebound. RECTAL: Development Lead present, rectal tone intact, decreased perineal sensation EXTREMITIES: Normal range of motion, no clubbing or edema. Neurovascularly intact NEUROLOGICAL: Alert and oriented x4.Normal gait and speech. Moving extremities sensation intact distal pedal pulses intact SKIN: Warm, dry, no laceration, no petechiae, no rashes or lesions. <Clara Larose MD - Last Filed: 05/08/23 23:26> Initial Vital Signs Initial Vital Signs: Vital Signs Temperature 98.4 F 05/08/23 15:05 Pulse Rate 77 05/08/23 15:05 Respiratory Rate 18 05/08/23 15:05 Blood Pressure 195/94 H 05/08/23 15:05 Pulse Oximetry 99 05/08/23 15:05 Oxygen Delivery Method Room Air 05/08/23 15:05 GENERAL: [Well-appearing, well-nourished] and in [no acute] distress. HEENT: Head atraumatic,EOMI, pupils reactive, face symmetric, [moist] mucous membranes [EARS:] [Tympanic membranes visualized, no erythema or bulging, no hemotympanum] [PHARYNX:] [No erythema, no tonsillar exudate, no cervical lymphadenopathy] CARDIOVASCULAR: Regular rate and rhythm without murmurs, rubs or gallops. RESPIRATORY: Breath sounds equal bilaterally, no wheezes rales or rhonchi. ABDOMEN: Soft, nontender. Normoactive bowel sounds all 4 quadrants. No guarding or rebound. [RECTAL:] Development Lead present, rectal tone intact, decreased perineal sensation : No CVA tenderness EXTREMITIES: Normal range of motion, no clubbing or edema. Neurovascularly intact NEUROLOGICAL: Alert and oriented x4.Normal gait and speech. Cranial nerves II through XII grossly intact. [Good [id number], good [id number], strength equal bilaterally, no dysarthria or aphasia, sensation in tact to soft touch bilaterally, no visual changes, no facial droop] SKIN: Warm, dry, no laceration, no petechiae, no rashes or lesions. Course <Adina Haas, DO - Last Filed: 05/09/23 07:07> Orders Ordered: Discontinued Medications Acetaminophen (Acetaminophen 325 Mg Tablet) 650 mg PO Q6H PRN PRN Reason: Fever/Mild Pain (1-3) Last Admin: 05/08/23 22:21 Dose: 650 mg Documented By: AB Dexamethasone (Dexamethasone 10 Mg/Ml Vial) 10 mg IV NOW ONE Stop: 05/08/23 19:45 Last Admin: 05/08/23 19:55 Dose: 10 mg Documented By: AB Dexamethasone (Dexamethasone 10 Mg/Ml Vial) 6 mg IV Q8H [facility] Last Admin: 05/08/23 22:17 Dose: Not Given Documented By: AB Enoxaparin Sodium (Enoxaparin 40 Mg/0.4 Ml Syringe) 40 mg SUBCUT DAILY [facility] Hydrochlorothiazide (Hydrochlorothiazide 25 Mg Tablet) 12.5 mg PO DAILY TOR Hydromorphone HCl (Hydromorphone 0.5 Mg Inj) 0.5 mg IV NOW ONE Stop: 05/08/23 16:16 Last Admin: 05/08/23 16:44 Dose: 0.5 mg Documented By: RB Hydromorphone HCl (Hydromorphone 1 Mg Inj) 1 mg IV NOW ONE Stop: 05/08/23 19:45 Last Admin: 05/08/23 19:59 Dose: 1 mg Documented By: AB Hydromorphone HCl (Hydromorphone 0.5 Mg Inj) 0.5 mg IV NOW PRN PRN Reason: Pain, Severe (7-10) Last Admin: 05/08/23 22:24 Dose: 0.5 mg Documented By: AB Lorazepam (Lorazepam 2 Mg/Ml Inj) 0.5 mg IV NOW ONE Stop: 05/08/23 16:16 Last Admin: 05/08/23 16:44 Dose: 0.5 mg Documented By: RB Losartan Potassium (Losartan 50 Mg Tablet) 50 mg PO NOW TOR Metoprolol Succinate (Metoprolol Er 50 Mg Tablet) 50 mg PO NOW ONE Stop: 05/08/23 18:24 Last Admin: 05/08/23 18:32 Dose: 50 mg Documented By: RB Metoprolol Succinate (Metoprolol Er 50 Mg Tablet) 50 mg PO BID TOR Morphine Sulfate (Morphine 4 Mg/Ml Inj) 4 mg IV NOW ONE Stop: 05/08/23 18:13 Last Admin: 05/08/23 18:18 Dose: 4 mg Documented By: RB Naloxone HCl (Naloxone 0.4 Mg/Ml Vial) 0.2 mg IV Q2MIN PRN PRN Reason: Opiate Reversal Ondansetron HCl (Ondansetron 4 Mg/2 Ml Inj) 4 mg IV Q8H PRN PRN Reason: Nausea And Vomiting Last Admin: 05/08/23 22:21 Dose: 4 mg Documented By: Polyethylene Glycol (Polyethylene Glycol 3350 17 Gm Powd.Pack) 17 gm PO DAILY TOR Zolpidem Tartrate (Zolpidem 5 Mg Tablet) 5 mg PO BEDTIME PRN PRN Reason: Sleep Vital Signs Vital signs: Vital Signs - 8 hr 05/08/23 15:30 05/08/23 15:35 05/08/23 15:35 Pulse Rate 68 64 Respiratory Rate 20 17 Blood Pressure 202/102 H Pulse Oximetry 98 97 05/08/23 15:44 05/08/23 15:44 05/08/23 16:00 Pulse Rate 63 Respiratory Rate 21 Blood Pressure 211/100 H 223/109 H Pulse Oximetry 98 05/08/23 16:00 05/08/23 16:15 05/08/23 16:15 Pulse Rate 68 65 Respiratory Rate 24 21 Blood Pressure 201/100 H Pulse Oximetry 99 98 05/08/23 16:30 05/08/23 16:30 05/08/23 16:45 Pulse Rate 65 Respiratory Rate 18 Blood Pressure 182/103 H 214/102 H Pulse Oximetry 98 05/08/23 16:45 05/08/23 17:47 05/08/23 17:50 Pulse Rate 66 77 Respiratory Rate 17 Blood Pressure 209/101 H Pulse Oximetry 97 96 05/08/23 17:50 05/08/23 18:00 05/08/23 18:00 Pulse Rate 74 70 Respiratory Rate 21 19 Blood Pressure 202/112 H Pulse Oximetry 98 98 05/08/23 18:15 05/08/23 18:15 05/08/23 18:30 Pulse Rate 69 69 Respiratory Rate 23 20 Blood Pressure 213/121 H Pulse Oximetry 99 97 05/08/23 18:30 05/08/23 18:32 05/08/23 18:52 Pulse Rate 69 70 Respiratory Rate 17 Blood Pressure 215/104 H 215/104 H Pulse Oximetry 97 05/08/23 18:53 05/08/23 18:53 05/08/23 19:02 Pulse Rate 68 78 Respiratory Rate 21 Blood Pressure 219/100 H Pulse Oximetry 98 93 05/08/23 19:03 05/08/23 19:03 05/08/23 19:03 Pulse Rate 74 74 Respiratory Rate 26 H Blood Pressure 201/98 H 201/98 H Pulse Oximetry 98 05/08/23 19:15 05/08/23 19:15 05/08/23 19:30 Pulse Rate 69 Respiratory Rate 22 Blood Pressure 197/76 H 215/104 H Pulse Oximetry 97 05/08/23 19:30 05/08/23 19:45 05/08/23 19:45 Pulse Rate 69 71 Respiratory Rate 19 21 Blood Pressure 211/95 H Pulse Oximetry 95 95 05/08/23 20:00 05/08/23 20:00 05/08/23 20:15 Pulse Rate 74 Respiratory Rate 20 Blood Pressure 204/100 H 188/89 H Pulse Oximetry 97 05/08/23 20:15 05/08/23 20:30 05/08/23 20:30 Pulse Rate 73 74 Respiratory Rate 19 19 Blood Pressure 221/102 H Pulse Oximetry 94 95 05/08/23 20:45 05/08/23 20:45 05/08/23 20:49 Pulse Rate 73 Respiratory Rate 18 Blood Pressure 219/105 H 212/90 H Pulse Oximetry 93 05/08/23 20:49 05/08/23 21:00 05/08/23 21:01 Pulse Rate 71 74 Respiratory Rate 17 19 Blood Pressure 211/98 H Pulse Oximetry 95 94 05/08/23 21:01 05/08/23 21:30 05/08/23 21:30 Pulse Rate 75 75 Respiratory Rate 20 17 Blood Pressure 203/91 H Pulse Oximetry 94 95 05/08/23 22:00 05/08/23 22:00 Pulse Rate 71 Respiratory Rate 17 Blood Pressure 196/91 H Pulse Oximetry 96 <Clara Larose MD - Last Filed: 05/08/23 23:26> Orders Ordered: Discontinued Medications Acetaminophen (Acetaminophen 325 Mg Tablet) 650 mg PO Q6H PRN PRN Reason: Fever/Mild Pain (1-3) Last Admin: 05/08/23 22:21 Dose: 650 mg Documented By: AB Dexamethasone (Dexamethasone 10 Mg/Ml Vial) 10 mg IV NOW ONE Stop: 05/08/23 19:45 Last Admin: 05/08/23 19:55 Dose: 10 mg Documented By: AB Dexamethasone (Dexamethasone 10 Mg/Ml Vial) 6 mg IV Q8H TOR Last Admin: 05/08/23 22:17 Dose: Not Given Documented By: AB Enoxaparin Sodium (Enoxaparin 40 Mg/0.4 Ml Syringe) 40 mg SUBCUT DAILY [facility] Hydrochlorothiazide (Hydrochlorothiazide 25 Mg Tablet) 12.5 mg PO DAILY [facility] Hydromorphone HCl (Hydromorphone 0.5 Mg Inj) 0.5 mg IV NOW ONE Stop: 05/08/23 16:16 Last Admin: 05/08/23 16:44 Dose: 0.5 mg Documented By: RB Hydromorphone HCl (Hydromorphone 1 Mg Inj) 1 mg IV NOW ONE Stop: 05/08/23 19:45 Last Admin: 05/08/23 19:59 Dose: 1 mg Documented By: AB Hydromorphone HCl (Hydromorphone 0.5 Mg Inj) 0.5 mg IV NOW PRN PRN Reason: Pain, Severe (7-10) Last Admin: 05/08/23 22:24 Dose: 0.5 mg Documented By: AB Lorazepam (Lorazepam 2 Mg/Ml Inj) 0.5 mg IV NOW ONE Stop: 05/08/23 16:16 Last Admin: 05/08/23 16:44 Dose: 0.5 mg Documented By: RB Losartan Potassium (Losartan 50 Mg Tablet) 50 mg PO NOW TOR Metoprolol Succinate (Metoprolol Er 50 Mg Tablet) 50 mg PO NOW ONE Stop: 05/08/23 18:24 Last Admin: 05/08/23 18:32 Dose: 50 mg Documented By: RB Metoprolol Succinate (Metoprolol Er 50 Mg Tablet) 50 mg PO BID TOR Morphine Sulfate (Morphine 4 Mg/Ml Inj) 4 mg IV NOW ONE Stop: 05/08/23 18:13 Last Admin: 05/08/23 18:18 Dose: 4 mg Documented By: RB Naloxone HCl (Naloxone 0.4 Mg/Ml Vial) 0.2 mg IV Q2MIN PRN PRN Reason: Opiate Reversal Ondansetron HCl (Ondansetron 4 Mg/2 Ml Inj) 4 mg IV Q8H PRN PRN Reason: Nausea And Vomiting Last Admin: 05/08/23 22:21 Dose: 4 mg Documented By: Polyethylene Glycol (Polyethylene Glycol 3350 17 Gm Powd.Pack) 17 gm PO DAILY TOR Zolpidem Tartrate (Zolpidem 5 Mg Tablet) 5 mg PO BEDTIME PRN PRN Reason: Sleep Vital Signs Vital signs: Vital Signs - 8 hr 05/08/23 15:30 05/08/23 15:35 05/08/23 15:35 Pulse Rate 68 64 Respiratory Rate 20 17 Blood Pressure 202/102 H Pulse Oximetry 98 97 05/08/23 15:44 05/08/23 15:44 05/08/23 16:00 Pulse Rate 63 Respiratory Rate 21 Blood Pressure 211/100 H 223/109 H Pulse Oximetry 98 05/08/23 16:00 05/08/23 16:15 05/08/23 16:15 Pulse Rate 68 65 Respiratory Rate 24 21 Blood Pressure 201/100 H Pulse Oximetry 99 98 05/08/23 16:30 05/08/23 16:30 05/08/23 16:45 Pulse Rate 65 Respiratory Rate 18 Blood Pressure 182/103 H 214/102 H Pulse Oximetry 98 05/08/23 16:45 05/08/23 17:47 05/08/23 17:50 Pulse Rate 66 77 Respiratory Rate 17 Blood Pressure 209/101 H Pulse Oximetry 97 96 05/08/23 17:50 05/08/23 18:00 05/08/23 18:00 Pulse Rate 74 70 Respiratory Rate 21 19 Blood Pressure 202/112 H Pulse Oximetry 98 98 05/08/23 18:15 05/08/23 18:15 05/08/23 18:30 Pulse Rate 69 69 Respiratory Rate 23 20 Blood Pressure 213/121 H Pulse Oximetry 99 97 05/08/23 18:30 05/08/23 18:32 05/08/23 18:52 Pulse Rate 69 70 Respiratory Rate 17 Blood Pressure 215/104 H 215/104 H Pulse Oximetry 97 05/08/23 18:53 05/08/23 18:53 05/08/23 19:02 Pulse Rate 68 78 Respiratory Rate 21 Blood Pressure 219/100 H Pulse Oximetry 98 93 05/08/23 19:03 05/08/23 19:03 05/08/23 19:03 Pulse Rate 74 74 Respiratory Rate 26 H Blood Pressure 201/98 H 201/98 H Pulse Oximetry 98 05/08/23 19:15 05/08/23 19:15 05/08/23 19:30 Pulse Rate 69 Respiratory Rate 22 Blood Pressure 197/76 H 215/104 H Pulse Oximetry 97 05/08/23 19:30 05/08/23 19:45 05/08/23 19:45 Pulse Rate 69 71 Respiratory Rate 19 21 Blood Pressure 211/95 H Pulse Oximetry 95 95 05/08/23 20:00 05/08/23 20:00 05/08/23 20:15 Pulse Rate 74 Respiratory Rate 20 Blood Pressure 204/100 H 188/89 H Pulse Oximetry 97 05/08/23 20:15 05/08/23 20:30 05/08/23 20:30 Pulse Rate 73 74 Respiratory Rate 19 19 Blood Pressure 221/102 H Pulse Oximetry 94 95 05/08/23 20:45 05/08/23 20:45 05/08/23 20:49 Pulse Rate 73 Respiratory Rate 18 Blood Pressure 219/105 H 212/90 H Pulse Oximetry 93 05/08/23 20:49 05/08/23 21:00 05/08/23 21:01 Pulse Rate 71 74 Respiratory Rate 17 19 Blood Pressure 211/98 H Pulse Oximetry 95 94 05/08/23 21:01 05/08/23 21:30 05/08/23 21:30 Pulse Rate 75 75 Respiratory Rate 20 17 Blood Pressure 203/91 H Pulse Oximetry 94 95 05/08/23 22:00 05/08/23 22:00 Pulse Rate 71 Respiratory Rate 17 Blood Pressure 196/91 H Pulse Oximetry 96 MDM - Back Pain/Injury <Adina Haas, DO - Last Filed: 05/09/23 07:07> Lab Data 05/08/23 16:00 05/08/23 16:00 Labs: Lab Results 05/08/23 05/08/23 05/08/23 Range/Units 16:00 16:50 20:50 WBC 8.0 (4.5-11.0) X10^3/uL RBC 4.13 (4.0-5.2) X10^6/uL Hgb 12.6 (12.0-16.0) g/dL Hct 37.8 (36-46) % MCV 91.6 (80-100) fL MCH 30.5 (26-34) PG MCHC 33.2 (30-36) % RDW 18.1 H (11.6-14.8) % Plt Count 361 (150-400) X10^3/uL Neut % (Auto) 59.7 (50-75) % Lymph % (Auto) 27.3 (25-40) % Nolan % (Auto) 10.2 (3-14) % Eos % (Auto) 1.9 L (2-4) % Baso % (Auto) 0.9 (0-2) % Neut # (Auto) 4800 (3574-7496) /uL Lymph # (Auto) 2200 (0638-8921) /uL Nolan # (Auto) 800 (0-900) /uL Eos # (Auto) 200 (0-450) /uL Baso # (Auto) 100 (0-100) /uL PT 11.8 (9.4-12.5) SECONDS INR 1.0 (0.9-1.3) Sodium 141 (137-145) mmol/L Potassium 3.7 (3.4-5.1) mmol/L Chloride 108 H (98-107) mmol/L Carbon Dioxide 26 (22-32) mmol/L BUN 10 (7-17) mg/dL Creatinine 0.61 (0.52-1.04) mg/dL Estimated GFR > 60 (>60) mL/min BUN/Creatinine Ratio 16.4 (6-22) Glucose 106 (80-110) mg/dL Calcium 9.8 (8.4-10.2) mg/dL Total Bilirubin 0.7 (0.2-1.3) mg/dL AST 28 (14-36) IU/L ALT 17 (<35) IU/L Alkaline Phosphatase 56 (38-126) U/L Total Creatine Kinase 63 (30-135) U/L Troponin I 0.013 (0.01-0.034) ng/mL NT-Pro-B Natriuret Pep 188 H (<125) pg/mL Total Protein 7.8 (6.3-8.2) g/dL Albumin 4.3 (3.5-5.0) g/dL Globulin 3.5 (1.7-4.1) g/dL Albumin/Globulin Ratio 1.2 (1.0-2.8) Lipase 166 (23-300) U/L SARS-CoV-2 (PCR) Negative (Negative) Urine Dip Bedside Urine Glucose Negative Bedside Urine Bilirubin - Negative Bedside Urine Ketone - Negative Urine Specific Draper 1.015 Bedside Urine Occult Blood +++ Bedside Urine pH 5.5 Bedside Urine Protein +/- 15 Bedside Urine Urobilinogen - Negative Bedside Urine Nitrite - Negative Bedside Urine Leukocytes +/- 15 Esterase Imaging Data PROCEDURE: MR LUMBAR SPINE WO/W CON INDICATIONS: mass TECHNIQUE: Noncontrast sagittal T1 spin echo and T2 fast spin echo, sagittal STIR, axial: Radiologist's Impression: PROCEDURE: MR LUMBAR SPINE WO/W CON INDICATIONS: mass TECHNIQUE: Noncontrast sagittal T1 spin echo and T2 fast spin echo, sagittal STIR, axial T1 and T2 fast spin echo through the lumbar spine. In cases with scoliosis, additional coronal T2 fast spin echo may be performed. After the administration of contrast, sagittal and axial T1 spin echo with fat saturation through the lumbar spine. COMPARISON: [facility], , MR THORACIC SPINE WO/W CON, 05/08/2023, 16:36. [facility], CT, CT KIDNEY URETER BLADDER (KUB), 04/09/2023, 14:56. FINDINGS: Image quality: Excellent. Alignment and curvature: There is normal bony alignment. Marrow: Marrow is of normal overall signal. No acute vertebral body compression fractures. No suspicious marrow enhancement. Spinal cord: There is a mass seen involving the distal spinal cord, measuring 7 cm craniocaudal. This mass demonstrates prominent heterogeneous enhancement. This mass expands the spinal canal. Additional enhancing material can be seen involving distal aspect of the spinal canal, seen at the S1-S2 level, as on series 5, image 9. Paraspinous soft tissues: There is partial visualization of the known left renal mass. T12-L1: The above described mass nearly fills the spinal canal this level. There is severe left-sided neural foraminal narrowing. L1-L2: The mass is partially seen at this level. There is moderate left-sided neural foraminal narrowing at this level. L2-L3: No significant abnormality is seen. L3-L4: The disc height is well-preserved. Loss of disc signal is seen at this level. No significant neural foraminal or central canal narrowing can be seen. L4-L5: The disc height and disk signal are relatively well-preserved. Mild generalized disc bulge is seen. Mild to moderate facet hypertrophy can seen. No significant neural foraminal or central canal narrowing can be seen. L5-S1: The disc height and disk signal are relatively well-preserved. Mild generalized disc bulge is seen. Moderate facet joint hypertrophy is seen. No neural foraminal narrowing or central canal narrowing can be seen. IMPRESSION: There is a 7 cm mass seen involving the conus medullaris. 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 Differential diagnosis includes additional causes, including metastasis, however. There is additional enhancement seen involving the distal spinal canal, which is nonspecific. Additional findings: Known left renal mass, highly suspicious for renal cell carcinoma Dictated by: Osman Ortega M.D. on 05/08/2023 at 16:54 PROCEDURE: MR THORACIC SPINE WO/W CON INDICATIONS: mass seen on lumbar TECHNIQUE: Noncontrast sagittal T1 spin echo and T2 fast spin echo, sag: Radiologist's Impression: ADDENDUMThis report includes an Addendum and supersedes previous reports for this exam. PROCEDURE: MR THORACIC SPINE WO/W CON INDICATIONS: mass seen on lumbar TECHNIQUE: Noncontrast sagittal T1 spin echo and T2 fast spin echo, sagittal STIR, axial T1 and T2 fast spin echo through the thoracic spine. After the administration of contrast, axial and sagittal T1 spin echo with fat saturation through the thoracic spine. COMPARISON: [facility], MR, MR LUMBAR SPINE WO/W CON, 05/08/2023, 16:36. [facility], CT, CT KIDNEY URETER BLADDER (KUB), 04/09/2023, 14:56. FINDINGS: Image quality: Diagnostic. Alignment and curvature: There is normal bony alignment. Marrow: Marrow is of normal overall signal. No acute vertebral body compression fractures. Spinal cord: There is an ovoid mass seen involving the distal spinal cord, which is seen from the mid T11 level through the L1-L2 level. This mass measures 7 cm craniocaudal, with a greatest axial extent of 2.1 x 1.7 cm. There is marked heterogeneous enhancement seen within this mass. No additional masses can be3 seen more proximally. Apparent prominent veins can be seen posterior to the spinal cord within the mid thoracic spine, as on series 14, image 9. Paraspinous soft tissues: No paravertebral masses or abnormal enhancement. There is partial visualization of the known left renal mass Miscellaneous: The above described mass nearly fills the spinal canal at the T11-T12 and the T12-L1 levels, with severe central canal narrowing. There is significant neural foraminal narrowing seen distally. This mass expands the spinal canal and mildly expands the left T12-L1 neural foramen. This is consistent with a longstanding process. IMPRESSION: Within the distal spinal cord, there is a 7 cm enhancing mass seen. 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 Differential diagnosis would also include other entities, including metastasis. Venous prominence can be seen posterior to the spinal cord within the mid thoracic spine. The known left renal mass is partially seen. The CT appearance is concerning for renal cell carcinoma. Dictated by: Osman Ortega M.D. on 05/08/2023 at 16:46 Approved by: Osman Ortega M.D. on 05/08/2023 at 16:53 ADDENDUM: Report corrected and underlined above. Dictated by: Osman Ortega M.D. on 05/08/2023 at 17:00 Approved by: Osman Ortega M.D. on 05/08/2023 at 17:03 Addendum Dictated By: Osman Ortega MD Addendum Signed By: 05/08/231802 Addendum Cosigned By: DD/ TD/TT: 05/08/23 PROCEDURE: MR THORACIC SPINE WO/W CON INDICATIONS: mass seen on lumbar TECHNIQUE: Noncontrast sagittal T1 spin echo and T2 fast spin echo, sagittal STIR, axial T1 and T2 fast spin echo through the thoracic spine. After the administration of contrast, axial and sagittal T1 spin echo with fat saturation through the thoracic spine. COMPARISON: [facility], MR, MR LUMBAR SPINE WO/W CON, 05/08/2023, 16:36. [facility], CT, CT KIDNEY URETER BLADDER (KUB), 04/09/2023, 14:56. FINDINGS: Image quality: Diagnostic. Alignment and curvature: There is normal bony alignment. Marrow: Marrow is of normal overall signal. No acute vertebral body compression fractures. Spinal cord: There is an ovoid mass seen involving the distal spinal cord, which is seen from the mid T11 level through the L1-L2 level. This mass measures 7 cm craniocaudal, with a greatest axial extent of 2.1 x 1.7 cm. There is marked heterogeneous enhancement seen within this mass. No additional masses can be3 seen more proximally. Apparent prominent veins can be seen posterior to the spinal cord within the mid thoracic spine, as on series 14, image 9. Paraspinous soft tissues: No paravertebral masses or abnormal enhancement. There is partial visualization of the known left renal mass Miscellaneous: Central canal and foramina appear widely patent at all scanned levels. IMPRESSION: Within the distal spinal cord, there is a 7 cm enhancing mass seen. 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 Differential diagnosis would also include other entities, including metastasis. Venous prominence can be seen posterior to the spinal cord within the mid thoracic spine. The known left renal mass is partially seen. The CT appearance is concerning for renal cell carcinoma. Dictated by: Osman Ortega M.D. on 05/08/2023 at 16:46 Approved by: Osman Ortega M.D. on 05/08/2023 at 16:53 CT scan - abdomen/pelvis: Radiologist's Impression: PROCEDURE: CT CHEST ABD PEL W CON INDICATIONS: RENAL MASS/CONUS MEDULLARIS MASS/STAGING TECHNIQUE: After the administration of intravenous contrast, 5 mm thick sections acquired from the lung apices to the symphysis. 5 mm coronal and sagittal reformats were performed, with additional 7 mm MIP reformats through the lungs. For radiation dose reduction, the following was used: automated exposure control, adjustment of mA and/or kV according to patient size. COMPARISON: [facility], CT, CT ABDOMEN PELVIS W CON, 02/09/2023, 6:51. [facility], MR, MR LUMBAR SPINE WO/W CON, 05/08/2023, 16:36. FINDINGS: Image quality: Excellent. CHEST: Lower Neck: No enlarged lymph nodes. Thyroid: The thyroid gland bilaterally is mildly lobulated and thickened and contains scattered internal nodular radiodensities, more likely to represent multinodular mild goiter than primary or metastatic neoplasm. Axillae: No enlarged lymph nodes. Chest Wall: Unremarkable except for what appears to be a healed right posterolateral mid chest rib fracture seen on series 2, image 33. . Lungs and Pleura: No pneumothorax or pleural effusions. No consolidation or suspicious nodules. Heart: Heart size is normal. No pericardial effusion. Thoracic Vessels: The aorta and pulmonary arteries demonstrate normal size. Mediastinum and Dania: No enlarged lymph nodes. Esophagus: No wall thickening. Small hiatal hernia. ABDOMEN: Liver: No definite solid mass. 2 there is a vague low-attenuation within the posterior aspect of the left medial hepatic segment, measuring approximately 1.8 cm in dimension, potentially a metastatic focus. See series 2, image 52, liver-spleen windows. Gallbladder: No radiopaque gallstones but there is multifocal nodular wall thickening potentially a manifestation of metastatic disease. Biliary ducts: No biliary dilation. Pancreas: No ductal dilation. Spleen: Size is within normal limits. Adrenal Glands: No adrenal nodules. Kidneys and Ureters: No hydronephrosis. The right kidney is relatively atrophic, the left kidney is abnormal also with a mass lesion projecting laterally from the mid renal cortex measuring up to 5.5 cm AP and 4.0 cm transverse. A right double pigtail ureteral stent extends from the renal pelvis into the bladder. No solid mass. No complex renal cystic lesion which requires follow up. Stomach and Bowel: Normal colonic caliber, without significant wall thickening. Peritoneum: No abnormal intraperitoneal fluid. No free air. Ventral Wall: No significant ventral hernia. Abdominal Nodes: No retroperitoneal or mesenteric adenopathy by size criteria. Vessels: Aorta and inferior vena cava are normal in size. PELVIS: Pelvic Organs: Prior hysterectomy.. Bladder: No bladder wall thickening, accounting for underdistention. Pelvic Nodes: No enlarged lymph nodes. Miscellaneous: No inguinal hernias are seen. Normal appendix found right lower quadrant. Bones: No aggressive osseous abnormality. IMPRESSION: 1. Presumed mild multinodular goiter. Thyroid ultrasound follow up to establish baseline is recommended electively. 2. A conus medullaris mass clearly visible on MR scanning earlier today is not detectable by current CT scanning. 3. Multiple nodular masses are seen involving the inter surface of the gallbladder, potentially a manifestation of metastatic disease. 4. Large solid exophytic left mid kidney mass, having moderately enlarged from a comparison CT 02/09/23. 5. Resolution of previously identified right-sided hydronephrosis by placement of a double pigtail right ureteral stent. Chronic right renal cortical atrophy. 6. Questionable hypodensity within the left medial hepatic segment seen on series 2, image 52 which is a worrisome finding for potential early metastatic disease. Follow-up with MR or PET-CT scanning likely is warranted. Dictated by: Romain Lopez M.D. on 05/08/2023 at 23:04 [facility] Narrative Medical decision making narrative: Patient is 62-year-old female who has known left renal mass presents today from outpatient MRI with abnormal lumbar spine. She has had continuing ongoing numbness tingling and sharp shooting pain from her toes to her buttocks. Blood work has been reviewed no significant leukocytosis or anemia no electrolyte abnormality or PALOMA no evidence of end-organ damage troponin is negative MRIs pending Patient signed out to Dr. Larose Care of patient is signed out to myself by Dr. 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 Patient reassessed, continuing to endorse significant pain, requesting additional pain medications. She has sensation in her lower extremities, however decreased sensation in the perineal area. Rectal tone intact. Images pushed to [place] [facility] for review. <Clara Larose MD - Last Filed: 05/08/23 23:26> Differential Diagnosis Differential diagnosis: Likely lumbar radiculopathy, sciatica and strain of lumbar region Lab Data Labs: Lab Results 05/08/23 05/08/23 05/08/23 Range/Units 16:00 16:50 20:50 WBC 8.0 (4.5-11.0) X10^3/uL RBC 4.13 (4.0-5.2) X10^6/uL Hgb 12.6 (12.0-16.0) g/dL Hct 37.8 (36-46) % MCV 91.6 (80-100) fL MCH 30.5 (26-34) PG MCHC 33.2 (30-36) % RDW 18.1 H (11.6-14.8) % Plt Count 361 (150-400) X10^3/uL Neut % (Auto) 59.7 (50-75) % Lymph % (Auto) 27.3 (25-40) % Nolan % (Auto) 10.2 (3-14) % Eos % (Auto) 1.9 L (2-4) % Baso % (Auto) 0.9 (0-2) % Neut # (Auto) 4800 (1032-6942) /uL Lymph # (Auto) 2200 (0278-3240) /uL Nolan # (Auto) 800 (0-900) /uL Eos # (Auto) 200 (0-450) /uL Baso # (Auto) 100 (0-100) /uL PT 11.8 (9.4-12.5) SECONDS INR 1.0 (0.9-1.3) Sodium 141 (137-145) mmol/L Potassium 3.7 (3.4-5.1) mmol/L Chloride 108 H (98-107) mmol/L Carbon Dioxide 26 (22-32) mmol/L BUN 10 (7-17) mg/dL Creatinine 0.61 (0.52-1.04) mg/dL Estimated GFR > 60 (>60) mL/min BUN/Creatinine Ratio 16.4 (6-22) Glucose 106 (80-110) mg/dL Calcium 9.8 (8.4-10.2) mg/dL Total Bilirubin 0.7 (0.2-1.3) mg/dL AST 28 (14-36) IU/L ALT 17 (<35) IU/L Alkaline Phosphatase 56 (38-126) U/L Total Creatine Kinase 63 (30-135) U/L Troponin I 0.013 (0.01-0.034) ng/mL NT-Pro-B Natriuret Pep 188 H (<125) pg/mL Total Protein 7.8 (6.3-8.2) g/dL Albumin 4.3 (3.5-5.0) g/dL Globulin 3.5 (1.7-4.1) g/dL Albumin/Globulin Ratio 1.2 (1.0-2.8) Lipase 166 (23-300) U/L SARS-CoV-2 (PCR) Negative (Negative) Urine Dip Bedside Urine Glucose Negative Bedside Urine Bilirubin - Negative Bedside Urine Ketone - Negative Urine Specific Draper 1.015 Bedside Urine Occult Blood +++ Bedside Urine pH 5.5 Bedside Urine Protein +/- 15 Bedside Urine Urobilinogen - Negative Bedside Urine Nitrite - Negative Bedside Urine Leukocytes +/- 15 Esterase MDM Narrative Medical decision making narrative: Patient is 62-year-old female who has known left renal mass presents today from outpatient MRI with abnormal lumbar spine. She has had continuing ongoing numbness tingling and sharp shooting pain from her toes to her buttocks. Blood work has been reviewed no significant leukocytosis or anemia no electrolyte abnormality or PALOMA no evidence of end-organ damage troponin is negative MRIs pending Patient signed out to Dr. Larose Care of patient is signed out to myself by Dr. 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 Patient reassessed, continuing to endorse significant pain, requesting additional pain medications. She has sensation in her lower extremities, however decreased sensation in the perineal area. Rectal tone intact. Images pushed to [place] [facility] for review. Dr. Bazan (neurosurgery) - recommended transfer to medicine service - this is a complex mass and any intervention would require multiple specialties. 2029 -accepted by hospitalist Service at [facility], however there are no available beds and I was informed that it would be a long wait for any open beds. We will attempt to call other facilities to place patient. 2149 - Discussed with neurosurgery Dr. Gold, states that patient should be transported to their hospital, but requested they be sent to the ER with eventual MICU admit for close neuro checks. 2199 - Dr. Bray in the ED accepts transfer. 2299 -[facility] picked patient up for transport. Hemodynamically stable at time of transport. Discharge Plan Departure Patient Disposition: [facility] Clinical Impression: Acute back pain Prescriptions: No Action polyethylene glycol 3350 17 gram/dose powder 17 g PO BID losartan-hydrochlorothiazide 50-12.5 mg tablet 1 tab PO BID ibandronate 150 mg tablet 150 mg PO QMONTH zolpidem 6.25 mg tablet,ext release multiphase 6.25 mg PO ONCE PM PRN (Reason: insomnia) acetaminophen [Tylenol] 325 mg capsule 650 mg PO QID PRN (Reason: pain) Qty: 60 0RF metoprolol succinate 50 mg tablet extended release 24 hr 50 mg PO BID Qty: 60 1RF gabapentin 100 mg capsule 100 mg PO BEDTIME Qty: 30 1RF Referrals: Adriel Sotelo MD [Primary Care Provider] -
--- NOTE | 2023-05-08 15:39 | PC.NURSE ---
This RN informed ED provider of patient hypertension and that patient takes PO metoprolol BID and took morning dose. No new orders at this time.
[2023-05-08 16:08] LABS: Add Manual Diff / Slide Review NO; Basophils Absolute Auto 100 /uL (0-100); Basophils Percent Auto 0.9 % (0-2); Eosinophils Absolute Auto 200 /uL (0-450); Eosinophils Percent Auto 1.9 % (2-4); Hematocrit 37.8 % (36-46); Hemoglobin 12.6 g/dL (12.0-16.0); Lymphocytes Absolute Auto 2200 /uL (1100-4500); Lymphocytes Percent Auto 27.3 % (25-40); Mean Corpuscular HGB Conc 33.2 % (30-36); Mean Corpuscular Hemoglobin 30.5 PG (26-34); Mean Corpuscular Volume 91.6 fL (80-100); Monocytes Absolute Auto 800 /uL (0-900); Monocytes Percent Auto 10.2 % (3-14); Neutrophils Absolute Auto 4800 /uL (1500-7000); Neutrophils Percent Auto 59.7 % (50-75); Platelet Count 361 X10^3/uL (150-400); Red Blood Cell Count 4.13 X10^6/uL (4.0-5.2); Red Cell Distribution Width 18.1 % (11.6-14.8)
[2023-05-08 16:20] LABS: Creatine Kinase 63 U/L (30-135)
[2023-05-08 16:22] LABS: Alanine Aminotransferase 17 IU/L (<35); Albumin 4.3 g/dL (3.5-5.0); Albumin Globulin Ratio 1.2 (1.0-2.8); Alkaline Phosphatase 56 U/L (38-126); Aspartate Aminotransferase 28 IU/L (14-36); BUN Creatinine Ratio 16.4 (6-22); Bilirubin Total 0.7 mg/dL (0.2-1.3); Blood Urea Nitrogen 10 mg/dL (7-17); Calcium 9.8 mg/dL (8.4-10.2); Carbon Dioxide 26 mmol/L (22-32); Chloride 108 mmol/L (98-107); Estimated Glomerular Filt Rate > 60 mL/min (>60); Globulin 3.5 g/dL (1.7-4.1); Glucose 106 mg/dL (80-110); HEMOLYSIS 34 (0-50); Lipase 166 U/L (23-300); Potassium 3.7 mmol/L (3.4-5.1); Sodium 141 mmol/L (137-145); Total Protein 7.8 g/dL (6.3-8.2)
[2023-05-08 16:33] LABS: NT-proBNP (BNP-Adult 18+) 188 pg/mL (<125); Troponin I 0.013 ng/mL (0.01-0.034)
[2023-05-08] MEDS: HYDROMORPHONE 0.5 MG INJ IV ×2 (16:44→22:24)
[2023-05-08] MEDS: LORazepam 2 MG/ML INJ 0.5 MG IV (16:44)
--- NOTE | 2023-05-08 16:56 | PC.NURSE ---
Patient left ED with dental laboratory technician. dental laboratory technician informed of patient getting medications that were just given. This RN informed tech to immediately call this RN if any adverse side effects are noted.
[2023-05-08 17:08] LABS: Prothrombin Time 11.8 SECONDS (9.4-12.5)
--- NOTE | 2023-05-08 18:15 | PC.NURSE ---
Patient returns from MRI and reassessed patient pain and provider placed new pain medication for this patient.
[2023-05-08] MEDS: MORPHINE 4 MG/ML INJ IV (18:18)
[2023-05-08] MEDS: METOPROLOL ER 50 MG TABLET PO (18:32)
--- NOTE | 2023-05-08 19:24 | PC.NURSE ---
Assumed pt care at this time. Focused assessment completed. Pt complains of mid back pain at a 8/10 aching/cramping feeling. Would like to have something stronger than what she has been given. Last time she was in ER she said that she had something that worked better. Advised pt that would pass on information to provider on shift now, and follow up with regarding PRN medications and HTN parameters.
[2023-05-08] MEDS: DEXAMETHASONE 10 MG/ML VIAL IV (19:55)
[2023-05-08] MEDS: HYDROMORPHONE 1 MG INJ IV (19:59)
[2023-05-08 21:49] LABS: COVID19 -Nasal RAPID Negative (Negative)
--- NOTE | 2023-05-08 22:01 | DI.CT.S_ITS ---
PROCEDURE: CT CHEST ABD PEL W CON INDICATIONS: RENAL MASS/CONUS MEDULLARIS MASS/STAGING TECHNIQUE: After the administration of intravenous contrast, 5 mm thick sections acquired from the lung apices to the symphysis. 5 mm coronal and sagittal reformats were performed, with additional 7 mm MIP reformats through the lungs. For radiation dose reduction, the following was used: automated exposure control, adjustment of mA and/or kV according to patient size. COMPARISON: [facility], CT, CT ABDOMEN PELVIS W CON, 02/09/2023, 6:51. [facility], MR, MR LUMBAR SPINE WO/W CON, 05/08/2023, 16:36. FINDINGS: Image quality: Excellent. CHEST: Lower Neck: No enlarged lymph nodes. Thyroid: The thyroid gland bilaterally is mildly lobulated and thickened and contains scattered internal nodular radiodensities, more likely to represent multinodular mild goiter than primary or metastatic neoplasm. Axillae: No enlarged lymph nodes. Chest Wall: Unremarkable except for what appears to be a healed right posterolateral mid chest rib fracture seen on series 2, image 33. . Lungs and Pleura: No pneumothorax or pleural effusions. No consolidation or suspicious nodules. Heart: Heart size is normal. No pericardial effusion. Thoracic Vessels: The aorta and pulmonary arteries demonstrate normal size. Mediastinum and Dania: No enlarged lymph nodes. Esophagus: No wall thickening. Small hiatal hernia. ABDOMEN: Liver: No definite solid mass. 2 there is a vague low-attenuation within the posterior aspect of the left medial hepatic segment, measuring approximately 1.8 cm in dimension, potentially a metastatic focus. See series 2, image 52, liver-spleen windows. Gallbladder: No radiopaque gallstones but there is multifocal nodular wall thickening potentially a manifestation of metastatic disease. Biliary ducts: No biliary dilation. Pancreas: No ductal dilation. Spleen: Size is within normal limits. Adrenal Glands: No adrenal nodules. Kidneys and Ureters: No hydronephrosis. The right kidney is relatively atrophic, the left kidney is abnormal also with a mass lesion projecting laterally from the mid renal cortex measuring up to 5.5 cm AP and 4.0 cm transverse. A right double pigtail ureteral stent extends from the renal pelvis into the bladder. No solid mass. No complex renal cystic lesion which requires follow up. Stomach and Bowel: Normal colonic caliber, without significant wall thickening. Peritoneum: No abnormal intraperitoneal fluid. No free air. Ventral Wall: No significant ventral hernia. Abdominal Nodes: No retroperitoneal or mesenteric adenopathy by size criteria. Vessels: Aorta and inferior vena cava are normal in size. PELVIS: Pelvic Organs: Prior hysterectomy.. Bladder: No bladder wall thickening, accounting for underdistention. Pelvic Nodes: No enlarged lymph nodes. Miscellaneous: No inguinal hernias are seen. Normal appendix found right lower quadrant. Bones: No aggressive osseous abnormality. IMPRESSION: 1. Presumed mild multinodular goiter. Thyroid ultrasound follow up to establish baseline is recommended electively. 2. A conus medullaris mass clearly visible on MR scanning earlier today is not detectable by current CT scanning. 3. Multiple nodular masses are seen involving the inter surface of the gallbladder, potentially a manifestation of metastatic disease. 4. Large solid exophytic left mid kidney mass, having moderately enlarged from a comparison CT 02/09/23. 5. Resolution of previously identified right-sided hydronephrosis by placement of a double pigtail right ureteral stent. Chronic right renal cortical atrophy. 6. Questionable hypodensity within the left medial hepatic segment seen on series 2, image 52 which is a worrisome finding for potential early metastatic disease. Follow-up with MR or PET-CT scanning likely is warranted. Dictated by: Romain Lopez M.D. on 05/08/2023 at 23:04 Approved by: Romain Lopez M.D. on 05/08/2023 at 23:20
[2023-05-08] MEDS: ACETAMINOPHEN 325 MG TABLET 650 MG PO (22:21)
[2023-05-08] MEDS: ONDANSETRON 4 MG/2 ML INJ IV (22:21)
--- NOTE | 2023-05-08 22:35 | PC.NURSE ---
0 - ED to ED report off to Nurse Vikki RN at [facility]. Will call her back after pt leaves facility. [phone]
== END 2023-05-08 23:09 | disposition short-term general hospital (02) ==
PROVIDERS: Emergency Medicine; Emergency Provider Emergency Medicine; PCP Family Medicine
DX: M54.50 Low back pain, unspecified (principal); G95.89 Other specified diseases of spinal cord; Z20.822 Contact with and (suspected) exposure to COVID-19
CPT/HCPCS: 36415; 51798; 71260; 72157; 72158; 74177; 80053; 81003; 82550; 83690; 83880; 84484; 85025; 85610; 87635; 93005; 96374; 96375; 96376; 99284; A9579; J1100; J1170; J2060; J2270; J2405; Q9967

== ENCOUNTER 2023-07-03 20:13 | Emergency (ER) | payer OTHER, SELFPAY ==
[2023-07-03 20:18] VITALS: BP 130/78; PULSE 87; RESP 18; TEMP 37; O2SAT 98; BMI 24.7
[2023-07-03 22:52] VITALS: PULSE 84; O2SAT 96
--- NOTE | 2023-07-03 22:54 | ED_ITS ---
HPI - General Adult General Chief complaint: Urogenital-Female Stated complaint: cathetar disconnected inside Time Seen by Provider: 07/03/23 22:38 Source: patient Mode of arrival: Ambulatory History of Present Illness HPI narrative: 63-year-old female with history of renal cell carcinoma, recent spinal lesion status post resection at [facility] presents by private vehicle for dislodged Kelly catheter. Patient has had indwelling Kelly catheter since her spinal surgery and has minimal motor function in her lower extremities. She has been unable to walk since her surgery. Has been at bedside is concerned because her left lower extremity seems larger in size and her right lower extremity. Note: Triage note states right leg, has been confirms that it was the left lower extremity that is larger in size than the right lower extremity. Related Data Home Medications Medication Instructions Recorded Confirmed ibandronate 150 mg tablet 150 mg PO QMONTH 05/08/23 05/08/23 losartan 50 mg-hydrochlorothiazide 1 tab PO BID 05/08/23 05/08/23 12.5 mg tablet polyethylene glycol 3350 17 17 g PO BID 05/08/23 05/08/23 gram/dose oral powder zolpidem 6.25 mg tablet,extended 6.25 mg PO ONCE PM PRN insomnia 05/08/23 05/08/23 release,multiphase Previous Rx's Medication Instructions Recorded acetaminophen 325 mg capsule 650 mg (2 x 325 mg) PO QID PRN 10/08/21 (Tylenol) pain #60 caps gabapentin 100 mg capsule 100 mg PO BEDTIME #30 caps 03/08/23 metoprolol succinate 50 mg 50 mg PO BID #60 tabs 03/08/23 tablet,extended release 24 hr Allergies Allergy/AdvReac Type Severity Reaction Status Date / Time No Known Drug Allergies Allergy Verified 05/08/23 20:01 Review of Systems Review of Systems Narrative: Negative except as noted above Patient History Medical History Renal mass Kidney stone Depression Hypertension Surgical History History of hysterectomy Family History Mother Hypertension Stroke Gallstones Brother Hypertension Family/Other Breast cancer Social History marital status: household members: spouse lives independently: Yes occupational status: employed Smoking Status: Never smoker alcohol intake: current Smoking Status: Never smoker alcohol intake frequency: holidays/special occasions only Substance Use Type: does not use Exam Initial Vital Signs Initial Vital Signs: Vital Signs Temperature 98.6 F 07/03/23 20:18 Pulse Rate 87 07/03/23 20:18 Respiratory Rate 18 07/03/23 20:18 Blood Pressure 130/78 07/03/23 20:18 Pulse Oximetry 98 07/03/23 20:18 Oxygen Delivery Method Room Air 07/03/23 20:18 Const: Awake, alert, appears chronically unwell MSK: No edema, left lower extremity is slightly larger in size than right lower extremity Skin: Warm, Dry, intact, no rashes Neuro: AO x3, CN II-XII grossly intact, decreased sensation bilateral lower extremities (chronic), decreased movement BLE (chronic) Course Orders Ordered: ED Orders 07/03/23 22:54 US periph venous low extrem lt Stat Vital Signs Vital signs: Vital Signs - 8 hr 07/03/23 20:18 07/03/23 22:52 07/03/23 23:00 Temperature 98.6 F Pulse Rate 87 84 85 Respiratory Rate 18 Blood Pressure 130/78 Pulse Oximetry 98 96 96 Oxygen Delivery Method Room Air 07/03/23 23:30 Temperature Pulse Rate 85 Respiratory Rate 18 Blood Pressure Pulse Oximetry 96 Oxygen Delivery Method Medical Decision Making Imaging Data US - DVT: Radiologist's Impression: PROCEDURE: US PERIPH VENOUS LOW EXTREM LT INDICATIONS: recent surgery, LLE swelling TECHNIQUE: Real-time imaging, as well as color and pulse Doppler interrogation, were performed of the lower extremity deep veins from the inguinal ligament to the popliteal fossa, with documentation of the visualized calf veins. COMPARISON: None. FINDINGS: The common femoral, femoral, popliteal, and the visualized calf veins are normally compressible, and free of intraluminal thrombus. Color and pulse Doppler demonstrate normal phasic intraluminal flow. There is normal augmentation response to distal compression maneuver. IMPRESSION: No findings of lower extremity deep venous thrombosis. Dictated by: Romain Lopez M.D. on 07/03/2023 at 23:24 Approved by: Romain Lopez M.D. on 07/03/2023 at 23:24 [facility] Narrative Medical decision making narrative: Left lower extremity swelling as well as dislodged Kelly catheter. Kelly catheter replaced by nursing staff with drainage of clear yellow urine. Ultrasound shows no evidence of DVT in the left lower extremity. Patient and has been advised of all imaging findings at bedside, recommended that patient keep all of her usually scheduled appointments with her specialists. Patient is still undergoing workup of a renal mass that may be cancerous in nature. Discharge Plan Departure Patient Disposition: Home Clinical Impression: Malfunction of Kelly catheter, Left leg swelling Instructions: How to Care for Your Kelly Catheter -- Female, DI for Peripheral Edema-Unilateral Activity Restrictions/Additional Instructions: Your ultrasound did not show any blood clots or other abnormal findings. Keep all of your usual appointments as scheduled Prescriptions: No Action polyethylene glycol 3350 17 gram/dose powder 17 g PO BID losartan-hydrochlorothiazide 50-12.5 mg tablet 1 tab PO BID ibandronate 150 mg tablet 150 mg PO QMONTH zolpidem 6.25 mg tablet,ext release multiphase 6.25 mg PO ONCE PM PRN (Reason: insomnia) acetaminophen [Tylenol] 325 mg capsule 650 mg PO QID PRN (Reason: pain) Qty: 60 0RF metoprolol succinate 50 mg tablet extended release 24 hr 50 mg PO BID Qty: 60 1RF gabapentin 100 mg capsule 100 mg PO BEDTIME Qty: 30 1RF Referrals: Adriel Sotelo MD [Primary Care Provider] - Stand Alone Forms: Patient Portal/API
[2023-07-03 23:00] VITALS: PULSE 85; O2SAT 96
[2023-07-03 23:30] VITALS: PULSE 85; RESP 18; O2SAT 96
== END 2023-07-03 23:58 | disposition home or self-care (01) ==
PROVIDERS: Emergency Provider Emergency Medicine; PCP Family Medicine
DX: T83.011A Breakdown (mechanical) of indwelling urethral catheter, initial encounter (principal); R60.9 Edema, unspecified
CPT/HCPCS: 93971; 99283

== ENCOUNTER 2023-07-12 09:11 | Emergency (ER) | payer OTHER, SELFPAY ==
[2023-07-12] VITALS (18 sets, daily range): BP systolic 124–167; BP diastolic 69–94; PULSE 78–99; RESP 20; TEMP 37.2; O2SAT 95–100
--- NOTE | 2023-07-12 09:29 | ED.GENADULT ---
HPI - General Adult General Chief complaint: Extremity Problem,Nontraumatic Stated complaint: ISSUE WITH CATHETER Time Seen by Provider: 07/12/23 09:19 History of Present Illness HPI narrative: 63-year-old woman with a history of hypertension and asthma with recently diagnosed renal cell cancer and a spinal lesion, patient's understanding is that the spine tumor that was removed is ?? from the renal tumor. She underwent neurosurgical intervention approximately 6 weeks ago. For which records are currently unavailable. She notes that since her surgery she has had pain and paresthesias in the lower extremities and is in a wheelchair, today she states that she is unable to bear any weight at all due to weakness in both lower extremities. She has a Kelly catheter in place and apparently had that replaced about a week ago after the balloon ruptured. She states she feels she had a bladder infection about 10 days ago and took an antibiotic that she had available at home pregnancies does not recall the name) and felt that by 2 days ago it seems that it was better. No fevers, nausea, vomiting. She continues to have regular bowel movements. Kelly catheter is in place. She is worried that there is again a Kelly catheter problem. She does not feel that she is systemically sick. Her does not feel that she is concerned or weaker than her baseline has been. There was no chest pain, palpitations, headaches. After initial concerning CT in January, they are meeting with Oncology in [place] on the to review findings Related Data Home Medications Medication Instructions Recorded Confirmed amitriptyline 50 mg tablet 50 mg PO QPM 07/12/23 07/12/23 bisacodyl 5 mg tablet 10 mg PO BEDTIME 07/12/23 07/12/23 famotidine 20 mg tablet 20 mg PO BID 07/12/23 07/12/23 furosemide 20 mg tablet 20 mg PO QAM 07/12/23 07/12/23 gabapentin 300 mg capsule 300 mg PO 3XD 07/12/23 07/12/23 lidocaine 5 % topical patch 1 patch topical DAILY 07/12/23 07/12/23 losartan 50 mg tablet 50 mg PO BID 07/12/23 07/12/23 metoprolol succinate 25 mg 75 mg PO DAILY 07/12/23 07/12/23 tablet,extended release 24 hr sennosides 8.6 mg tablet (senna) 8.6 mg PO BID PRN Constipation 07/12/23 07/12/23 tizanidine 2 mg capsule 2 mg PO Q8H PRN Muscle Spasm 07/12/23 07/12/23 Previous Rx's Medication Instructions Recorded acetaminophen 325 mg capsule 650 mg (2 x 325 mg) PO QID PRN 10/08/21 (Tylenol) pain #60 caps sulfamethoxazole 800 1 tab PO BID #20 tabs 07/12/23 mg-trimethoprim 160 mg tablet (Bactrim DS) Allergies Allergy/AdvReac Type Severity Reaction Status Date / Time No Known Drug Allergies Allergy Verified 07/12/23 09:53 Patient History Medical History Renal mass Kidney stone Depression Hypertension Surgical History History of hysterectomy Family History Mother Hypertension Stroke Gallstones Brother Hypertension Family/Other Breast cancer Social History marital status: household members: spouse lives independently: Yes occupational status: employed Smoking Status: Never smoker alcohol intake: current Smoking Status: Never smoker alcohol intake frequency: holidays/special occasions only Substance Use Type: does not use Exam Initial Vital Signs Initial Vital Signs: Vital Signs Temperature 98.9 F 07/12/23 09:29 Pulse Rate 83 07/12/23 09:29 Respiratory Rate 20 07/12/23 09:29 Blood Pressure 143/79 H 07/12/23 09:29 Pulse Oximetry 98 07/12/23 09:29 Oxygen Delivery Method Room Air 07/12/23 09:29 Course Orders Ordered: ED Orders 07/12/23 10:11 CT abdomen pelvis w con Stat 07/12/23 10:15 Urinalysis and Microscopic Stat Urine Culture Stat 07/12/23 10:16 MR head/brain wo/w con Stat MR lumbar spine wo/w con Stat MR thoracic spine wo/w con Stat 07/12/23 10:50 Complete Blood Count AUTO DIFF Stat Comprehensive Metabolic Panel Stat Hydromorphone HCl (Hydromorphone 0.5 Mg Inj) 0.5 mg IV Q15MIN PRN PRN Reason: Pain, Last Admin: 07/12/23 15:48 Dose: 0.5 mg Documented By: Admin: 07/12/23 14:46 Dose: 0.5 mg Documented By: Admin: 07/12/23 11:53 Dose: 0.5 mg Documented By: PRABHJOT Vital Signs Vital signs: Vital Signs - 8 hr 07/12/23 11:38 07/12/23 11:39 07/12/23 11:39 Pulse Rate 78 79 Blood Pressure 167/94 H Pulse Oximetry 99 98 07/12/23 12:10 07/12/23 12:30 07/12/23 13:00 Pulse Rate 79 80 81 Blood Pressure Pulse Oximetry 97 98 98 07/12/23 13:30 07/12/23 14:00 07/12/23 14:30 Pulse Rate 83 98 H 99 H Blood Pressure Pulse Oximetry 98 99 98 07/12/23 15:00 07/12/23 15:30 Pulse Rate 95 H 96 H Blood Pressure Pulse Oximetry 97 97 Medical Decision Making Lab Data 07/12/23 10:50 07/12/23 10:50 Labs: Lab Results 07/12/23 07/12/23 Range/Units 10:15 10:50 WBC 11.4 H (4.5-11.0) X10^3/uL RBC 3.62 L (4.0-5.2) X10^6/uL Hgb 10.7 L (12.0-16.0) g/dL Hct 32.6 L (36-46) % MCV 90.2 (80-100) fL MCH 29.6 (26-34) PG MCHC 32.8 (30-36) % RDW 15.5 H (11.6-14.8) % Plt Count 320 (150-400) X10^3/uL Neut % (Auto) 64.1 (50-75) % Lymph % (Auto) 21.6 L (25-40) % Patrick % (Auto) 8.0 (3-14) % Eos % (Auto) 5.3 H (2-4) % Baso % (Auto) 1.0 (0-2) % Neut # (Auto) 7300 H (3597-6278) /uL Lymph # (Auto) 2500 (3746-7366) /uL Patrick # (Auto) 900 (0-900) /uL Eos # (Auto) 600 H (0-450) /uL Baso # (Auto) 100 (0-100) /uL Sodium 137 (137-145) mmol/L Potassium 4.2 (3.4-5.1) mmol/L Chloride 104 (98-107) mmol/L Carbon Dioxide 28 (22-32) mmol/L BUN 22 H (7-17) mg/dL Creatinine 1.00 (0.52-1.04) mg/dL Estimated GFR > 60 (>60) mL/min BUN/Creatinine Ratio 22.0 (6-22) Glucose 104 (80-110) mg/dL Calcium 9.7 (8.4-10.2) mg/dL Total Bilirubin 0.7 (0.2-1.3) mg/dL AST 34 (14-36) IU/L ALT 13 (<35) IU/L Alkaline Phosphatase 69 (38-126) U/L Total Protein 7.7 (6.3-8.2) g/dL Albumin 4.0 (3.5-5.0) g/dL Globulin 3.7 (1.7-4.1) g/dL Albumin/Globulin Ratio 1.1 (1.0-2.8) Urine Color Yellow Urine Appearance Cloudy Urine pH 6.0 (4.5-8.0) Ur Specific Lovely 1.020 (1.000-1.035) Urine Protein 2+ H (Negative) Urine Glucose (UA) Negative (Negative) g/dL Urine Ketones Negative (NEGATIVE) Urine Occult Blood 3+ H (Negative) Urine Nitrate Negative (Negative) Urine Bilirubin Negative (NEGATIVE) Urine Urobilinogen 0.2 (0.2) E.U./dL Ur Leukocyte Esterase 2+ H (NEGATIVE) Urine RBC 5-10/hpf H (0-5/HPF) Urine WBC 30-100/hpf H (0-5/HPF) Ur Squamous Epith Cells 0-1 /hpf (0-5/HPF) Urine Bacteria Moderate (10-30) H (None) Ur Culture Indicated? Specimen cultured Vol Urine Centrifuged 10ml (spun) Imaging Data MRI brain: Radiologist's Impression: PROCEDURE: MR HEAD/BRAIN WO/W CON INDICATIONS: possible mets TECHNIQUE: Noncontrast axial T1 spin echo, axial T2 fast spin echo, sagittal and axial FLAIR, coronal T2 fast spin echo, axial gradient echo, axial diffusion and ADC through the brain. After the administration of contrast, axial and coronal and sagittal T1 spin echo with fat saturation through the brain. COMPARISON: [facility], CT, CT ABDOMEN PELVIS W CON, 07/12/2023, 12:05. [facility], MR, MR THORACIC SPINE WO/W CON, 07/12/2023, 16:25. [facility], MR, MR LUMBAR SPINE WO/W CON, 07/12/2023, 16:25. FINDINGS: Image quality: There is artifact associated with the metallic dental work. CSF spaces: Basal cisterns are patent. No extra-axial fluid collections. Ventricles are normal in size and shape. Brain: No midline shift. No intracranial bleeds or masses. No abnormal intracranial enhancement. There is cerebral volume loss for age. There is periventricular white matter chronic small vessel ischemic change. The brainstem appears normal. Diffusion-weighted images demonstrate no acute infarct. No chronic ischemic insults. Normal intravascular flow voids are present. Skull and face: Calvarial marrow is normal in signal. Orbits appear normal. Sinuses: Sinuses and mastoids appear clear. IMPRESSION: No masses or abnormal enhancement can be seen. Dictated by: Osman Ortega M.D. on 07/12/2023 at 16:35 CT scan - abdomen/pelvis: Radiologist's Impression: PROCEDURE: CT ABDOMEN PELVIS W CON INDICATIONS: low pelvic pain TECHNIQUE: After the administration of intravenous contrast, axial sections acquired from the lung bases to the pubic symphysis. Coronal and sagittal reformats were performed. For radiation dose reduction, the following was used: automated exposure control, adjustment of mA and/or kV according to patient size. COMPARISON: [facility], CT, CT KIDNEY URETER BLADDER (KUB), 04/09/2023, 14:56. [facility], CT, CT ABDOMEN PELVIS W CON, 02/09/2023, 6:51. FINDINGS: Image quality: Portions of the lower pelvis are suboptimally evaluated secondary to metallic streak artifact from lumbar fusion hardware. Lower Chest: No significant findings. ABDOMEN: Liver: Simple hepatic cyst. Gallbladder: Multiple luminal stones without wall thickening. Biliary ducts: No biliary dilation. Pancreas: No ductal dilation. Spleen: Size is within normal limits. Adrenal Glands: No adrenal nodules. Kidneys and Ureters: No hydronephrosis. Heterogeneously enhancing left renal mass measuring 5.6 x 4.6 cm compared to 5.2 x 4.4 cm. Simple right renal cysts. Right ureterovesicular junction stent is present. No renal obstruction. Stomach and Bowel: No colonic obstruction. There is minimal stranding within the presacral fat adjacent to the rectosigmoid junction. Minimal appearance of wall thickening. Peritoneum: No abnormal intraperitoneal fluid. No free air. Ventral Wall: No significant ventral hernia. Abdominal Nodes: No retroperitoneal or mesenteric adenopathy by size criteria. Vessels: Aorta and inferior vena cava are normal in size. PELVIS: Pelvic Organs: Unremarkable. Bladder: No bladder wall thickening, accounting for underdistention. Pelvic Nodes: No enlarged lymph nodes. Miscellaneous: No inguinal hernias are seen. Bones: No aggressive osseous abnormality posterior fusion is present from T11 through L2. IMPRESSION: Mild presacral fat stranding with minimal appearance of wall thickening at the rectosigmoid junction. Focal area of colitis cannot be excluded. Right ureterovesicular stent stable without renal obstruction. 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 Unchanged cholelithiasis. Dictated by: Sona Avitia M.D. on 07/12/2023 at 13:12 MR lumbar spine: Radiologist's Impression: PROCEDURE: MR LUMBAR SPINE WO/W CON INDICATIONS: unable to stand, spine surgery 6 weeks ago TECHNIQUE: Noncontrast sagittal T1 spin echo and T2 fast spin echo, sagittal STIR, axial T1 and T2 fast spin echo through the lumbar spine. In cases with scoliosis, additional coronal T2 fast spin echo may be performed. After the administration of contrast, sagittal and axial T1 spin echo with fat saturation through the lumbar spine. COMPARISON: [facility], MR, MR LUMBAR SPINE WO/W CON, 05/08/2023, 16:36. [facility], MR, MR THORACIC SPINE WO/W CON, 07/12/2023, 16:25. [facility], MR, MR HEAD/BRAIN WO/W CON, 07/12/2023, 16:12. [facility], CT, CT ABDOMEN PELVIS W CON, 07/12/2023, 12:05. FINDINGS: Image quality: There is artifact associated with the metallic hardware. This examination is limited by involuntary motion artifact. Alignment and curvature: There is normal bony alignment. Marrow: Marrow is of normal overall signal. No acute vertebral body compression fractures. No suspicious marrow enhancement. Spinal cord: The previously seen distal cord tumor is no longer definitely seen. However, artifact within this region limits evaluation. Visualized spinal cord demonstrates normal signal, without suspicious enhancement. Paraspinous soft tissues: Thoracolumbar fixation hardware is seen, extending down to the L2 level. There is vertebroplasty cement seen at T11, T12, L1, and L2. There is partial visualization of the known left lateral renal mass. Underlying degenerative changes are seen, which are similar to the prior MRI. IMPRESSION: Interval postoperative change, with posterior fixation hardware seen within the thoracolumbar region. The previously seen significant mass involving the distal cord is no longer definitely seen. However, there is artifact within this region, which limits evaluation. No findings of metastatic disease are detected. Dictated by: Osman Ortega M.D. on 07/12/2023 at 16:44 MR thorasic spine: Radiologist's Impression: PROCEDURE: MR THORACIC SPINE WO/W CON INDICATIONS: cant stand, conus medullaris tumor removed 6 wks ago TECHNIQUE: Noncontrast sagittal T1 spin echo and T2 fast spin echo, sagittal STIR, axial T1 and T2 fast spin echo through the thoracic spine. After the administration of contrast, axial and sagittal T1 spin echo with fat saturation through the thoracic spine. COMPARISON: [facility], , MR LUMBAR SPINE WO/W CON, 07/12/2023, 16:25. [facility], , MR HEAD/BRAIN WO/W CON, 07/12/2023, 16:12. [facility], CT, CT ABDOMEN PELVIS W CON, 07/12/2023, 12:05. [facility], , MR THORACIC SPINE WO/W CON, 05/08/2023, 16:36. FINDINGS: Image quality: This examination is limited by involuntary motion artifact. There is artifact associated with the metallic hardware. Alignment and curvature: There is normal bony alignment. Marrow: Marrow is of normal overall signal. No acute vertebral body compression fractures. Vertebroplasty cement can be seen at T11, T12, L1, and L2. Spinal cord: Visualized spinal cord is of normal signal and size, without abnormal enhancement. Paraspinous soft tissues: The known left renal mass is partially seen. Miscellaneous: Thoracolumbar fixation hardware can be seen. The previously seen enhancing mass involving the distal spinal cord is no longer seen. However, the artifact within this region limits evaluation. IMPRESSION: Postoperative study within normal limits, with fixation hardware seen within the thoracolumbar region, with associated artifact. The previously seen enhancing distal cord tumor is no longer definitely seen. No smita findings of metastatic disease can be seen. Dictated by: Osman Ortega M.D. 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 of post surgery 6 weeks ago, indwelling catheter, renal cell cancer Distant history of breast cancer, hypertension Data collected from: patient, spouse Social determinants of health that may influence the patients condition: Difficulties in accessing care Medical records reviewed: ER notes January with initial diagnosis of large renal mass on the left and an obstructing stone on the right Subsequent ER visits and imaging studies with interval pigtail cath placed on the right May 08 MRIs from March showing conus medullaris mass concern for metastasis with transfer to [facility] after ER visit for acute back pain with subsequent surgery. Probable liver metastases appreciated on CT scan of the abdomen at that time Seen on July 02 with concerns for DVT that was ruled out. Still has not had definitive diagnosis of the renal mass Differential considered: UTI, catheter problem, progression of disease, brain metastases Exam documented above, pertinent findings include: Patient seems slightly confused, refers to her to answer most questions, globally weak. Lower extremities are 2 week to allow her to stand and transfer safely with assist, heart and lungs are benign, she has developing pressure ulcers over her left buttock and sacrum. Based on meeting her in January and talking with her now she has a significant change overall in cognitive status Lab Test results independently reviewed as above. Pertinent findings: CBC shows mild leukocytosis at 11.4. Mild anemia at 20.7 and 32.6. This is in comparison to May 08 at 12.6 and 37 point. She has had an interval extensive lumbar surgery Chemistries are unremarkable Urine shows blood, leukocyte esterase, red cells, white cells, bacteria. Specimen is cultured. This is from a newly placed Kelly catheter with prior indwelling Kelly catheter noted Imaging studies independently reviewed: CT scan from January of 2023 identified a large renal cell cancer on the left and an obstructing stone on the right April of 2023 CT scan of the chest abdomen and pelvis questions the possibility of hepatic metastases as well as metastases to the gallbladder wall, renal mass is larger (patient and her were not aware of the possible metastatic findings) Imaging done today: CT of abdomen and pelvis shows slight interval increase in size and complex mass in the left kidney. No specific concerns in the liver or for other significant metastatic disease MRI of the brain does not show any concerning findings, specifically no metastatic disease MRRI of the thoracic spine does not show any specific enhancement, infection, metastatic disease or additional findings MR I of the lumbar spine shows no specific extrinsic pathology to explain her symptoms Consultations: 10am real-time consultation with radiology reviewing imaging [facility] available at [facility] today. 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 Renal cancer typically isn't going to metastasize like this to the spine however branch cancer could. He was not particularly concerned about liver metastases and had other explanations for the findings noted. Recommendation for imaging today as a CT scan of the abdomen and pelvis and MR of the lumbar and thoracic spine as well as MR of the brain. Treatments: Kelly catheter is replaced Barrier cream and dressings placed on the pressure sores Re-evaluations: 1020 extensive imaging studies and time that she will be in the MRI scanner reviewed with the patient. She understands and is willing to proceed Discussion: 63-year-old woman with an increasingly complex medical history. In January she was diagnosed with a an obstructing right renal stone with poor renal function on the right side. She currently has a ureteral stent in place. Simultaneously noticed to have what is very likely a renal cell cancer on the left side. She has not appointment to see Oncology at [facility] this . She still does not have a definitive diagnosis for the renal cell mass. 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 This has since been removed, she has a Kelly catheter in place. She was concerned that she is having increasing pain and weakness to the point that she was unable to stand today.. Extensive workup including MRI brain, thoracic spine lumbar spine and CT of the abdomen shows slight increase in the renal cell tumor and no other concerning findings. There was no evidence of acute pyelonephritis and no evidence of sepsis. At this point the only significant abnormality is the slightly growing renal cell mass and abnormal urinalysis from a Kelly catheter. Go ahead and treat her with Septra and await cultures. Because she has renal stent in place I am going to suggest 10 days of Septra. She is given copies of all of her imaging studies to take with her to her oncology appointment later this week. Encouraged her to return if there were additional questions and at this point she is safe for discharge Discharge Plan Departure Patient Disposition: Home Clinical Impression: Left kidney mass, Weakness Urinary tract infection Qualifiers: Urinary tract infection type: catheter-associated UTI Indwelling urinary catheter type: indwelling urethral catheter Encounter type: initial encounter Qualified Code(s): T83.511A - Infection and inflammatory reaction due to indwelling urethral catheter, initial encounter Instructions: DI for Urinary Tract Infection (UTI) Activity Restrictions/Additional Instructions: Thank you for coming in today Because of your increased weakness, inability to stand, recently found spinal tumor, known ureteral stent on the right side and enlarging kidney tumor on the left side, I was fairly thorough in my evaluation today There was no sign of acute infection, acute renal failure or reasons for hospitalization I did do MRIs of the brain, thoracic spine and lumbar spine and did not find any evidence of new disease or concerns that would explain your weakness I did a CT scan of your abdomen and pelvis and aside from the left renal mass there are no new abnormalities You do have an indwelling Kelly catheter which typically makes a urinalysis difficult to interpret. Because you were having symptoms without additional findings and have the ureteral stent I am going to opt to treat you with antibiotics while we await the urine culture. I have chosen Septra and I have given you the 1st dose today. I have sent a prescription to your pharmacy. Please make sure you complete the entire course unless you are directed otherwise by a physician who has looked at the urine cultures. The prescription was electronically transmitted to [facility] in [place] I have given you copies of reports of all of the imaging studies today and they have been electronically sent to the [facility] system to be reviewed by the oncology team with whom you me on . Please share all of these reports with them If you find that you have worsening symptoms new problems or additional concerns please feel free to return to the emergency department Prescriptions: New sulfamethoxazole-trimethoprim [Bactrim DS] 800-160 mg tablet 1 tab PO BID Qty: 20 0RF No Action losartan 50 mg tablet 50 mg PO BID sennosides [senna] 8.6 mg Tablet 8.6 mg PO BID PRN (Reason: Constipation) amitriptyline 50 mg tablet 50 mg PO QPM famotidine 20 mg Tablet 20 mg PO BID lidocaine 5 % Adhesive Patch,Medicated 1 patch TOPICAL DAILY Rx Instructions: leave on most painful area for up to 12 hrs gabapentin 300 mg capsule 300 mg PO 3XD furosemide 20 mg tablet 20 mg PO QAM metoprolol succinate 25 mg tablet extended release 24 hr 75 mg PO DAILY bisacodyl 5 mg Tablet 10 mg PO BEDTIME tizanidine 2 mg Capsule 2 mg PO Q8H PRN (Reason: Muscle Spasm) acetaminophen [Tylenol] 325 mg capsule 650 mg PO QID PRN (Reason: pain) Qty: 60 0RF Referrals: Adriel Sotelo MD [Primary Care Provider] - Stand Alone Forms: Patient Portal/API
--- NOTE | 2023-07-12 10:11 | DI.CT.S_ITS ---
PROCEDURE: CT ABDOMEN PELVIS W CON INDICATIONS: low pelvic pain TECHNIQUE: After the administration of intravenous contrast, axial sections acquired from the lung bases to the pubic symphysis. Coronal and sagittal reformats were performed. For radiation dose reduction, the following was used: automated exposure control, adjustment of mA and/or kV according to patient size. COMPARISON: [facility], CT, CT KIDNEY URETER BLADDER (KUB), 04/09/2023, 14:56. [facility], CT, CT ABDOMEN PELVIS W CON, 02/09/2023, 6:51. FINDINGS: Image quality: Portions of the lower pelvis are suboptimally evaluated secondary to metallic streak artifact from lumbar fusion hardware. Lower Chest: No significant findings. ABDOMEN: Liver: Simple hepatic cyst. Gallbladder: Multiple luminal stones without wall thickening. Biliary ducts: No biliary dilation. Pancreas: No ductal dilation. Spleen: Size is within normal limits. Adrenal Glands: No adrenal nodules. Kidneys and Ureters: No hydronephrosis. Heterogeneously enhancing left renal mass measuring 5.6 x 4.6 cm compared to 5.2 x 4.4 cm. Simple right renal cysts. Right ureterovesicular junction stent is present. No renal obstruction. Stomach and Bowel: No colonic obstruction. There is minimal stranding within the presacral fat adjacent to the rectosigmoid junction. Minimal appearance of wall thickening. Peritoneum: No abnormal intraperitoneal fluid. No free air. Ventral Wall: No significant ventral hernia. Abdominal Nodes: No retroperitoneal or mesenteric adenopathy by size criteria. Vessels: Aorta and inferior vena cava are normal in size. PELVIS: Pelvic Organs: Unremarkable. Bladder: No bladder wall thickening, accounting for underdistention. Pelvic Nodes: No enlarged lymph nodes. Miscellaneous: No inguinal hernias are seen. Bones: No aggressive osseous abnormality posterior fusion is present from T11 through L2. IMPRESSION: Mild presacral fat stranding with minimal appearance of wall thickening at the rectosigmoid junction. Focal area of colitis cannot be excluded. Right ureterovesicular stent stable without renal obstruction. 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 Unchanged cholelithiasis. Dictated by: Sona Avitia M.D. on 07/12/2023 at 13:12 Approved by: Sona Avitia M.D. on 07/12/2023 at 13:20
--- NOTE | 2023-07-12 10:16 | DI.MRI.S_ITS ---
PROCEDURE: MR THORACIC SPINE WO/W CON INDICATIONS: cant stand, conus medullaris tumor removed 6 wks ago TECHNIQUE: Noncontrast sagittal T1 spin echo and T2 fast spin echo, sagittal STIR, axial T1 and T2 fast spin echo through the thoracic spine. After the administration of contrast, axial and sagittal T1 spin echo with fat saturation through the thoracic spine. COMPARISON: [facility], MR, MR LUMBAR SPINE WO/W CON, 07/12/2023, 16:25. [facility], MR, MR HEAD/BRAIN WO/W CON, 07/12/2023, 16:12. [facility], CT, CT ABDOMEN PELVIS W CON, 07/12/2023, 12:05. [facility], MR, MR THORACIC SPINE WO/W CON, 05/08/2023, 16:36. FINDINGS: Image quality: This examination is limited by involuntary motion artifact. There is artifact associated with the metallic hardware. Alignment and curvature: There is normal bony alignment. Marrow: Marrow is of normal overall signal. No acute vertebral body compression fractures. Vertebroplasty cement can be seen at T11, T12, L1, and L2. Spinal cord: Visualized spinal cord is of normal signal and size, without abnormal enhancement. Paraspinous soft tissues: The known left renal mass is partially seen. Miscellaneous: Thoracolumbar fixation hardware can be seen. The previously seen enhancing mass involving the distal spinal cord is no longer seen. However, the artifact within this region limits evaluation. IMPRESSION: Postoperative study within normal limits, with fixation hardware seen within the thoracolumbar region, with associated artifact. The previously seen enhancing distal cord tumor is no longer definitely seen. No smita findings of metastatic disease can be seen. Dictated by: Osman Ortega M.D. on 07/12/2023 at 16:37 Approved by: Osman Ortega M.D. on 07/12/2023 at 16:41
--- NOTE | 2023-07-12 10:16 | DI.MRI.S_ITS ---
PROCEDURE: MR HEAD/BRAIN WO/W CON INDICATIONS: possible mets TECHNIQUE: Noncontrast axial T1 spin echo, axial T2 fast spin echo, sagittal and axial FLAIR, coronal T2 fast spin echo, axial gradient echo, axial diffusion and ADC through the brain. After the administration of contrast, axial and coronal and sagittal T1 spin echo with fat saturation through the brain. COMPARISON: [facility], CT, CT ABDOMEN PELVIS W CON, 07/12/2023, 12:05. [facility], MR, MR THORACIC SPINE WO/W CON, 07/12/2023, 16:25. [facility], MR, MR LUMBAR SPINE WO/W CON, 07/12/2023, 16:25. FINDINGS: Image quality: There is artifact associated with the metallic dental work. CSF spaces: Basal cisterns are patent. No extra-axial fluid collections. Ventricles are normal in size and shape. Brain: No midline shift. No intracranial bleeds or masses. No abnormal intracranial enhancement. There is cerebral volume loss for age. There is periventricular white matter chronic small vessel ischemic change. The brainstem appears normal. Diffusion-weighted images demonstrate no acute infarct. No chronic ischemic insults. Normal intravascular flow voids are present. Skull and face: Calvarial marrow is normal in signal. Orbits appear normal. Sinuses: Sinuses and mastoids appear clear. IMPRESSION: No masses or abnormal enhancement can be seen. Dictated by: Osman Ortega M.D. on 07/12/2023 at 16:35 Approved by: Osman Ortega M.D. on 07/12/2023 at 16:36
--- NOTE | 2023-07-12 10:16 | DI.MRI.S_ITS ---
PROCEDURE: MR LUMBAR SPINE WO/W CON INDICATIONS: unable to stand, spine surgery 6 weeks ago TECHNIQUE: Noncontrast sagittal T1 spin echo and T2 fast spin echo, sagittal STIR, axial T1 and T2 fast spin echo through the lumbar spine. In cases with scoliosis, additional coronal T2 fast spin echo may be performed. After the administration of contrast, sagittal and axial T1 spin echo with fat saturation through the lumbar spine. COMPARISON: [facility], MR, MR LUMBAR SPINE WO/W CON, 05/08/2023, 16:36. [facility], MR, MR THORACIC SPINE WO/W CON, 07/12/2023, 16:25. [facility], MR, MR HEAD/BRAIN WO/W CON, 07/12/2023, 16:12. [facility], CT, CT ABDOMEN PELVIS W CON, 07/12/2023, 12:05. FINDINGS: Image quality: There is artifact associated with the metallic hardware. This examination is limited by involuntary motion artifact. Alignment and curvature: There is normal bony alignment. Marrow: Marrow is of normal overall signal. No acute vertebral body compression fractures. No suspicious marrow enhancement. Spinal cord: The previously seen distal cord tumor is no longer definitely seen. However, artifact within this region limits evaluation. Visualized spinal cord demonstrates normal signal, without suspicious enhancement. Paraspinous soft tissues: Thoracolumbar fixation hardware is seen, extending down to the L2 level. There is vertebroplasty cement seen at T11, T12, L1, and L2. There is partial visualization of the known left lateral renal mass. Underlying degenerative changes are seen, which are similar to the prior MRI. IMPRESSION: Interval postoperative change, with posterior fixation hardware seen within the thoracolumbar region. The previously seen significant mass involving the distal cord is no longer definitely seen. However, there is artifact within this region, which limits evaluation. No findings of metastatic disease are detected. Dictated by: Osman Ortega M.D. on 07/12/2023 at 16:44 Approved by: Osman Ortega M.D. on 07/12/2023 at 16:47
--- NOTE | 2023-07-12 10:58 | PC.NURSE ---
Pt had BM. Brief change & glen care performed. Pt has stage 2 pressure injuries of left gluteal cleft & right lower glute. Pressure wounds cleaned with warm soapy water and barrier cream applied. Pt tipped to side for comfort & pain relief.
[2023-07-12 11:02] LABS: Appearance Urine UA CLOUDY; Bilirubin Urine UA NEGATIVE (NEGATIVE); Color Urine UA YELLOW; Glucose Urine UA NEGATIVE (Negative); Ketones Urine UA NEGATIVE (NEGATIVE); Leukocyte Esterase Urine UA 2+ (NEGATIVE); Nitrite Urine UA NEGATIVE (Negative); Occult Blood Urine UA 3+ (Negative); Protein Urine UA 2+ (Negative); Urobilinogen Urine UA 0.2 E.U./dL (0.2)
[2023-07-12 11:07] LABS: Add Manual Diff / Slide Review NO; Basophils Absolute Auto 100 /uL (0-100); Eosinophils Absolute Auto 600 /uL (0-450); Eosinophils Percent Auto 5.3 % (2-4); Hematocrit 32.6 % (36-46); Hemoglobin 10.7 g/dL (12.0-16.0); Lymphocytes Absolute Auto 2500 /uL (1100-4500); Lymphocytes Percent Auto 21.6 % (25-40); Mean Corpuscular HGB Conc 32.8 % (30-36); Mean Corpuscular Hemoglobin 29.6 PG (26-34); Mean Corpuscular Volume 90.2 fL (80-100); Monocytes Absolute Auto 900 /uL (0-900); Neutrophils Absolute Auto 7300 /uL (1500-7000); Neutrophils Percent Auto 64.1 % (50-75); Platelet Count 320 X10^3/uL (150-400); Red Blood Cell Count 3.62 X10^6/uL (4.0-5.2); Red Cell Distribution Width 15.5 % (11.6-14.8); White Blood Cell Count 11.4 X10^3/uL (4.5-11.0)
[2023-07-12 11:14] LABS: Alanine Aminotransferase 13 IU/L (<35); Albumin Globulin Ratio 1.1 (1.0-2.8); Alkaline Phosphatase 69 U/L (38-126); Aspartate Aminotransferase 34 IU/L (14-36); Bilirubin Total 0.7 mg/dL (0.2-1.3); Blood Urea Nitrogen 22 mg/dL (7-17); Calcium 9.7 mg/dL (8.4-10.2); Carbon Dioxide 28 mmol/L (22-32); Chloride 104 mmol/L (98-107); Estimated Glomerular Filt Rate > 60 mL/min (>60); Globulin 3.7 g/dL (1.7-4.1); Glucose 104 mg/dL (80-110); HEMOLYSIS 86 (0-50); Sodium 137 mmol/L (137-145); Total Protein 7.7 g/dL (6.3-8.2)
[2023-07-12 11:15] LABS: Potassium 4.2 mmol/L (3.4-5.1)
[2023-07-12 11:26] LABS: RBC Urine 5-10/HPF (0-5/HPF); Urine Volume 10mL (spun)
[2023-07-12 11:27] LABS: Bacteria Urine Moderate (10-30); Culture Indicated Urine Specimen Cultured; Squamous Epithelial Cell Urine 0-1 /HPF (0-5/HPF); WBC Urine 30-100/HPF (0-5/HPF)
[2023-07-12] MEDS: HYDROMORPHONE 0.5 MG INJ IV ×4 (11:53→18:38)
[2023-07-12] MEDS: TRIMETH/SULFA 160/800 (DS) TABLET 1 TAB PO (18:37)
== END 2023-07-12 19:04 | disposition home or self-care (01) ==
PROVIDERS: Emergency Provider Emergency Medicine; PCP Family Medicine
DX: N28.89 Other specified disorders of kidney and ureter (principal); T83.511A Infection and inflammatory reaction due to indwelling urethral catheter, initial encounter; R53.1 Weakness
CPT/HCPCS: 36415; 70553; 72157; 72158; 74177; 80053; 81001; 85025; 87077; 87086; 87186; 96374; 96376; 99284; A9579; J1170; Q9967

== ENCOUNTER → 2023-09-16 08:19 | Outpatient (CLI) | payer OTHER, SELFPAY | LOC: WC 08:19 | PROVIDERS: PCP Family Medicine; Referring Provider Family Medicine; Visit Provider Surgery | DX: L89.154 Pressure ulcer of sacral region, stage 4 (principal); G82.20 Paraplegia, unspecified; E46 Unspecified protein-calorie malnutrition; M46.28 Osteomyelitis of vertebra, sacral and sacrococcygeal region | CPT/HCPCS: 11044; 11047; 87070; 87075; 87205; 99204; 99214 ==

== ENCOUNTER → 2023-09-21 11:23 | Outpatient (CLI) | payer OTHER, SELFPAY ==
--- NOTE | 2023-09-21 11:24 | DI.RAD.S_ITS ---
PROCEDURE: XR SACRUM COCCYX MIN 2V INDICATIONS: eval osteo TECHNIQUE: 3 views of the sacrum and coccyx acquired. COMPARISON: None. FINDINGS: Bones: No fractures or dislocations. No suspicious bony lesions. There is overall a slight appearance of decreased bone density. Bilateral hip arthritic changes are present. Soft tissues: Visualized bowel gas pattern is normal. No suspicious soft tissue densities. IMPRESSION: Possible loss of bone mineral density. DEXA scan is recommended for further evaluation. Dictated by: Sona Avitia M.D. on 09/21/2023 at 15:00 Approved by: Sona Avitia M.D. on 09/21/2023 at 15:00
== END ==
PROVIDERS: PCP Family Medicine; Referring Provider Surgery; Visit Provider Surgery
DX: L89.154 Pressure ulcer of sacral region, stage 4 (principal)
CPT/HCPCS: 72220

== ENCOUNTER → 2023-09-22 09:17 | Outpatient (CLI) | payer OTHER, SELFPAY | PROVIDERS: PCP Family Medicine; Referring Provider Family Medicine; Visit Provider Surgery | DX: L89.154 Pressure ulcer of sacral region, stage 4 (principal); L98.8 Other specified disorders of the skin and subcutaneous tissue; G81.90 Hemiplegia, unspecified affecting unspecified side; E46 Unspecified protein-calorie malnutrition; M46.28 Osteomyelitis of vertebra, sacral and sacrococcygeal region; R20.8 Other disturbances of skin sensation | CPT/HCPCS: 11044; 11047; 87070; 87075; 87077; 87147; 87186; 87205 ==

== ENCOUNTER → 2023-09-29 10:07 | Outpatient (CLI) | payer OTHER, SELFPAY | PROVIDERS: PCP Family Medicine; Referring Provider Family Medicine; Visit Provider Surgery | DX: L89.154 Pressure ulcer of sacral region, stage 4 (principal); G81.90 Hemiplegia, unspecified affecting unspecified side; E46 Unspecified protein-calorie malnutrition; M46.28 Osteomyelitis of vertebra, sacral and sacrococcygeal region | CPT/HCPCS: 11044; 11047; 99213 ==

== ENCOUNTER → 2023-09-29 10:27 | Outpatient (CLI) | payer OTHER, SELFPAY ==
[2023-09-29 11:32] LABS: Add Manual Diff / Slide Review NO; Basophils Absolute Auto 100 /uL (0-100); Basophils Percent Auto 0.8 % (0-2); Eosinophils Absolute Auto 300 /uL (0-450); Eosinophils Percent Auto 2.6 % (2-4); Hematocrit 25.2 % (36-46); Hemoglobin 8.2 g/dL (12.0-16.0); Lymphocytes Absolute Auto 1500 /uL (1100-4500); Lymphocytes Percent Auto 13.9 % (25-40); Mean Corpuscular HGB Conc 32.7 % (30-36); Mean Corpuscular Hemoglobin 27.2 PG (26-34); Mean Corpuscular Volume 83.4 fL (80-100); Monocytes Absolute Auto 700 /uL (0-900); Monocytes Percent Auto 6.2 % (3-14); Neutrophils Absolute Auto 8400 /uL (1500-7000); Neutrophils Percent Auto 76.5 % (50-75); Platelet Count 597 X10^3/uL (150-400); Red Blood Cell Count 3.02 X10^6/uL (4.0-5.2); Red Cell Distribution Width 17.3 % (11.6-14.8); White Blood Cell Count 10.9 X10^3/uL (4.5-11.0)
[2023-09-29 11:43] LABS: HEMOLYSIS < 15 (0-50)
[2023-09-29 11:44] LABS: Alanine Aminotransferase 10 IU/L (<35); Albumin 3.7 g/dL (3.5-5.0); Alkaline Phosphatase 95 U/L (38-126); Aspartate Aminotransferase 19 IU/L (14-36); Bilirubin Total 0.5 mg/dL (0.2-1.3); Blood Urea Nitrogen 20 mg/dL (7-17); Calcium 9.5 mg/dL (8.4-10.2); Carbon Dioxide 26 mmol/L (22-32); Chloride 101 mmol/L (98-107); Estimated Glomerular Filt Rate > 60 mL/min (>60); Globulin 3.8 g/dL (1.7-4.1); Glucose 97 mg/dL (80-110); Potassium 3.4 mmol/L (3.4-5.1); Sodium 134 mmol/L (137-145); Total Protein 7.5 g/dL (6.3-8.2)
[2023-09-29 11:56] LABS: Erythrocyte Sedimentation Rate > 140 MM/HR (0-20)
[2023-09-29 11:59] LABS: Prealbumin 14.9 mg/dL (17.6-36.0)
[2023-09-29 12:01] LABS: C-Reactive Protein Quant 13.4 mg/dL (<1.0)
== END ==
PROVIDERS: PCP Family Medicine; Referring Provider Surgery; Visit Provider Surgery
DX: L89.154 Pressure ulcer of sacral region, stage 4 (principal)
CPT/HCPCS: 11044; 11047; 36415; 80053; 84134; 85025; 85651; 86140; 97605

== ENCOUNTER → 2023-10-06 09:32 | Outpatient (CLI) | payer OTHER, SELFPAY | PROVIDERS: PCP Family Medicine; Referring Provider Family Medicine; Visit Provider Surgery | DX: L89.154 Pressure ulcer of sacral region, stage 4 (principal); G81.90 Hemiplegia, unspecified affecting unspecified side; E46 Unspecified protein-calorie malnutrition; M46.28 Osteomyelitis of vertebra, sacral and sacrococcygeal region | CPT/HCPCS: 11044; 11047 ==

== ENCOUNTER → 2023-10-13 09:59 | Outpatient (CLI) | payer OTHER, SELFPAY | PROVIDERS: PCP Family Medicine; Referring Provider Family Medicine; Visit Provider Surgery | DX: L89.154 Pressure ulcer of sacral region, stage 4 (principal); G81.90 Hemiplegia, unspecified affecting unspecified side; E46 Unspecified protein-calorie malnutrition; M46.28 Osteomyelitis of vertebra, sacral and sacrococcygeal region; M62.81 Muscle weakness (generalized) | CPT/HCPCS: 11043; 11046; 97605; 99213; 99214 ==

== ENCOUNTER → 2023-10-13 11:40 | Outpatient (CLI) | payer OTHER, SELFPAY ==
[2023-10-13 12:08] LABS: Add Manual Diff / Slide Review NO; Basophils Absolute Auto 100 /uL (0-100); Basophils Percent Auto 1.1 % (0-2); Eosinophils Absolute Auto 300 /uL (0-450); Eosinophils Percent Auto 3.3 % (2-4); Hematocrit 24.1 % (36-46); Lymphocytes Absolute Auto 1400 /uL (1100-4500); Lymphocytes Percent Auto 18.7 % (25-40); Mean Corpuscular HGB Conc 33.1 % (30-36); Mean Corpuscular Hemoglobin 27.9 PG (26-34); Mean Corpuscular Volume 84.1 fL (80-100); Monocytes Absolute Auto 400 /uL (0-900); Monocytes Percent Auto 5.8 % (3-14); Neutrophils Absolute Auto 5500 /uL (1500-7000); Neutrophils Percent Auto 71.1 % (50-75); Platelet Count 378 X10^3/uL (150-400); Red Blood Cell Count 2.87 X10^6/uL (4.0-5.2); Red Cell Distribution Width 17.2 % (11.6-14.8); White Blood Cell Count 7.7 X10^3/uL (4.5-11.0)
[2023-10-13 12:24] LABS: Erythrocyte Sedimentation Rate > 140 MM/HR (0-20)
[2023-10-13 12:39] LABS: Alanine Aminotransferase 13 IU/L (<35); Albumin 3.8 g/dL (3.5-5.0); Albumin Globulin Ratio 1.2 (1.0-2.8); Alkaline Phosphatase 74 U/L (38-126); Aspartate Aminotransferase 20 IU/L (14-36); BUN Creatinine Ratio 23.9 (6-22); Bilirubin Total 0.7 mg/dL (0.2-1.3); Blood Urea Nitrogen 16 mg/dL (7-17); C-Reactive Protein Quant 1.9 mg/dL (<1.0); Calcium 9.7 mg/dL (8.4-10.2); Carbon Dioxide 23 mmol/L (22-32); Chloride 103 mmol/L (98-107); Estimated Glomerular Filt Rate > 60 mL/min (>60); Globulin 3.1 g/dL (1.7-4.1); Glucose 98 mg/dL (80-110); HEMOLYSIS < 15 (0-50); Potassium 4.2 mmol/L (3.4-5.1); Sodium 137 mmol/L (137-145); Total Protein 6.9 g/dL (6.3-8.2)
== END ==
PROVIDERS: PCP Family Medicine; Referring Provider Surgery; Visit Provider Surgery
DX: M46.28 Osteomyelitis of vertebra, sacral and sacrococcygeal region (principal)
CPT/HCPCS: 36415; 80053; 85025; 85651; 86140